=== PATIENT | female | born 1940 | race African-American/Black ===

== ENCOUNTER 2017-09-03 01:16 | Observation (INO) | payer OTHER ==
--- NOTE | 2017-09-03 01:49 | PDOC ---
History of Present Illness - General History Source: Patient <Pernell Bal - Last Filed: 09/03/17 04:13> - General History Source: Patient Exam Limitations: No Limitations - History of Present Illness Initial Comments: 09/03/17 03:12 The patient is a 77 year old female with a significant PMH of HTN, hyperlipidemia, and hypothyroidism who presents to the emergency department with a slight headache s/p suspected syncopal episode approximately 4 hours ago. The patient reports she walked out of her house to retrieve her food delivery and upon returning suddenly felt dizzy and had blurry vision, after which she subsequently fell to the ground. The patient is unsure of LOC as she was by herself at the time of the fall. The patients daughter reports arriving home shortly after and calling EMS. The patient states she has a mild headache at presentation but denies any other complaints. The patient denies any chest pain or shortness of breath currently or before the fall. She denies recent illness. Denies nausea, vomit, diarrhea and constipation. Denies dysuria, frequency, urgency and hematuria. Allergies: NKA Past surgical history: None reported. Social history: No reported cigarette, alcohol, or drug use. PCP: None reported. <Dany Garcia - Last Filed: 09/03/17 04:38> - General Chief Complaint: Syncope/Near Syncope Stated Complaint: SYNCOPE Time Seen by Provider: 09/03/17 01:41 Past History - Suicide/Smoking/Psychosocial Hx Smoking History: Never smoked Have you smoked in the past 12 months: No Information on smoking cessation initiated: No Hx Alcohol Use: No Drug/Substance Use Hx: No <Pernell Bal - Last Filed: 09/03/17 04:13> <Dany Garcia - Last Filed: 09/03/17 04:38> - Past Medical History Allergies/Adverse Reactions: Allergies Allergy/AdvReac Type Severity Reaction Status Date / Time No Known Allergies Allergy Verified 09/03/17 03:18 Review of Systems - Review of Systems Able to Perform ROS?: Yes Comments:: 09/03/17 03:12 CONSTITUTIONAL: Absent: fever, chills, diaphoresis, generalized weakness, malaise, loss of appetite HEENT: (+) Blurry vision (resolved). Absent: rhinorrhea, nasal congestion, throat pain, throat swelling, difficulty swallowing, mouth swelling, ear pain, eye pain. CARDIOVASCULAR: Absent: chest pain, syncope, palpitations, irregular heart rate, lightheadedness , peripheral edema RESPIRATORY: Absent: cough, shortness of breath, dyspnea with exertion, orthopnea, wheezing, stridor, hemoptysis GASTROINTESTINAL: Absent: abdominal pain, abdominal distension, nausea, vomiting, diarrhea, constipation, melena, hematochezia GENITOURINARY: Absent: dysuria, frequency, urgency, hesitancy, hematuria, flank pain, genital pain MUSCULOSKELETAL: Absent: myalgia, arthralgia, joint swelling SKIN: Absent: rash, itching, pallor HEMATOLOGIC/IMMUNOLOGIC: Absent: easy bleeding, easy bruising, lymphadenopathy, frequent infections ENDOCRINE: Absent: unexplained weight gain, unexplained weight loss, heat intolerance, cold intolerance NEUROLOGIC: (+) Slight headache. (+) Dizziness (resolved). Absent:focal weakness or paresthesias, seizure, mental status changes, bladder or bowel incontinence PSYCHIATRIC: Absent: anxiety, depression, suicidal or homicidal ideation, hallucinations. <Dany Garcia - Last Filed: 09/03/17 04:38> *Physical Exam - Vital Signs Last Vital Signs Temp Pulse Resp BP Pulse Ox 98.2 F 88 20 231/69 98 09/03/17 01:28 09/03/17 01:28 09/03/17 01:28 09/03/17 01:28 09/03/17 01:28 <Pernell Bal - Last Filed: 09/03/17 04:13> - Vital Signs Last Vital Signs Temp Pulse Resp BP Pulse Ox 98.2 F 88 20 231/69 98 09/03/17 01:28 09/03/17 01:28 09/03/17 01:28 09/03/17 01:28 09/03/17 01:28 - Physical Exam Comments: 09/03/17 03:12 GENERAL: Well developed, well nourished. Awake and alert. No acute distress. HEENT: (+) Slight hematoma to right frontal aspect of forehead. Slightly tender. No raccoon or jacobsen sign. Normocephalic. PERRLA, EOMI. No conjunctival pallor. Sclera are non-icteric. Moist mucous membranes. Oropharynx is clear. NECK: Supple. Full ROM. No JVD. Carotid pulses 2+ and symmetric, without bruits. No thyromegaly. No lymphadenopathy. CARDIOVASCULAR: Regular rate and rhythm. No murmurs, rubs, or gallops. Distal pulses are 2+ and symmetric. PULMONARY: No evidence of respiratory distress. Lungs clear to auscultation bilaterally. No wheezing, rales or rhonchi. ABDOMINAL: Soft. Non-tender. Non-distended. No rebound or guarding. No organomegaly. Normoactive bowel sounds. MUSCULOSKELETAL Normal range of motion at all joints. No bony deformities or tenderness. No CVA tenderness. EXTREMITIES: No cyanosis. No clubbing. No edema. No calf tenderness. SKIN: Warm and dry. Normal capillary refill. No rashes. No jaundice. NEUROLOGICAL: Alert, awake, appropriate. Cranial nerves 2-12 intact. No deficits to light touch and temperature in face, upper extremities and lower extremities. No motor deficits in the in face, upper extremities and lower extremities. Normoreflexic in the upper and lower extremities. Normal speech. Toes are downgoing bilaterally. Gait is normal without ataxia. PSYCHIATRIC: Cooperative. Good eye contact. Appropriate mood and affect. <Dany Garcia - Last Filed: 09/03/17 04:38> Heart Score/ECG Review #1 09/03/17 03:13 EKG done at 2:04 Vent rate 84 bpm Normal sinus rhythm Possible left atrial enlargement Cannot rule out anterior infarct, age undetermined Abnormal ECG <Dany Garcia - Last Filed: 09/03/17 04:38> ED Treatment Course - LABORATORY CBC & Chemistry Diagram: 09/03/17 02:10 09/03/17 02:10 <Pernell Bal - Last Filed: 09/03/17 04:13> - LABORATORY CBC & Chemistry Diagram: 09/03/17 02:10 09/03/17 02:10 - ADDITIONAL ORDERS Additional order review: Laboratory Results 09/03/17 09/03/17 02:10 02:10 PT with INR 12.40 INR 1.10 Sodium 145 Potassium 3.6 Chloride 111 H Carbon Dioxide 28 Anion Gap 6 L BUN 12 Creatinine 0.7 Creat Clearance w eGFR > 60 Random Glucose 104 Calcium 8.5 Total Bilirubin 0.3 AST 27 ALT 22 Alkaline Phosphatase 113 Creatine Kinase 70 Troponin I 0.02 B-Natriuretic Peptide 1068.83 H Total Protein 7.9 Albumin 3.4 09/03/17 02:10 RBC 3.87 MCV 70.8 L MCHC 30.6 L RDW 19.8 H MPV 8.3 Neutrophils % 67.4 Lymphocytes % 23.6 Monocytes % 6.8 Eosinophils % 2.0 Basophils % 0.2 <Dany Garcia - Last Filed: 09/03/17 04:38> *DC/Admit/Observation/Transfer - Discharge Dispostion Admit: Yes <Pernell Bal - Last Filed: 09/03/17 04:13> - Attestations Scribe Attestion: 09/03/17 03:13 Documentation prepared by Dany Garcia, acting as claim review medical director for Pernell Bal DO. <Dany Garcia - Last Filed: 09/03/17 04:38> Diagnosis at time of Disposition: Syncope - Discharge Dispostion Condition at time of disposition: Stable
[2017-09-03 02:19] LABS: BASO % 0.2 % (0-2.0); HEMATOCRIT 27.4 % (32.4-45.2); HEMOGLOBIN 8.4 GM/dL (10.7-15.3); LYMPH % 23.6 % (8-40); MCH 21.7 pg (25.7-33.7); MCHC 30.6 g/dl (32.0-36.0); MEAN CELL VOLUME 70.8 fl (80-96); MEAN PLT VOLUME 8.3 fl (7.5-11.1); MONO % 6.8 % (3.8-10.2); NEUT % 67.4 % (42.8-82.8); PLATELET COUNT 222 K/MM3 (134-434); RBC 3.87 M/mm3 (3.60-5.2); RDW 19.8 % (11.6-15.6); WHITE BLOOD COUNT 4.3 K/mm3 (4.0-10.0)
[2017-09-03 02:20] LABS: ADD RBC MORPHOLOGY YES
[2017-09-03 02:48] LABS: INR 1.1 (0.82-1.09); PROTHROMBIN TIME (PATIENT) 12.4 SEC (9.7-13.0)
[2017-09-03 02:57] LABS: ALBUMIN 3.4 g/dl (3.4-5.0); ANION GAP 6 (8-16); BILIRUBIN,TOTAL 0.3 mg/dL (0.2-1.0); BLOOD UREA NITROGEN 12 mg/dL (7-18); CALCIUM 8.5 mg/dL (8.5-10.1); CHLORIDE 111 mmol/L (98-107); CO2 28 mmol/L (21-32); CREATININE 0.7 mg/dL (0.55-1.02); GLUCOSE,RANDOM 104 mg/dL (74-106); POTASSIUM 3.6 mmol/L (3.5-5.1); SGOT/AST 27 U/L (15-37); SGPT/ALT 22 U/L (12-78); SODIUM 145 mmol/L (136-145); TOT PROT 7.9 g/dl (6.4-8.2)
[2017-09-03 03:00] LABS: ALK PHOS 113 U/L (45-117); N-TERMINAL BNP 1068.83 pg/ml (5-450)
[2017-09-03 03:37] LABS: URINE APPEARANCE CLEAR; URINE BILIRUBIN NEGATIVE (<2.0 mg/dL); URINE BLOOD NEGATIVE (NEGATIVE); URINE COLOR STRAW; URINE GLUCOSE (UA) NEGATIVE (NEGATIVE); URINE KETONE NEGATIVE (NEGATIVE); URINE LEUK ESTERASE NEGATIVE (NEGATIVE); URINE NITRITE NEGATIVE (NEGATIVE)
[2017-09-03 03:44] LABS: URINE PROTEIN 1+ (NEGATIVE)
[2017-09-03] MEDS ORDERED: METOPROLOL TARTRATE 5 MG/5 ML VIAL IVPUSH ONE (04:39)
[2017-09-03] MEDS ORDERED: METOPROLOL TARTRATE 5 MG/5 ML VIAL ONE (04:41)
--- NOTE | 2017-09-03 04:42 | PN ---
Teaching Attending Note Name of Resident: Lorna Hopper ATTENDING PHYSICIAN STATEMENT I saw and evaluated the patient. I reviewed the resident's note and discussed the case with the resident. I agree with the resident's findings and plan as documented. SUBJECTIVE: 77 yo F with Pmhx. of HTN, HLD, and hypothyriodism, who presents with headache and fall. Pt. went out of her house to get food when she felt dizzy and lightheaded. Also with associated blurry vision. States she fell, but does not know if she lost conscioussness. No chest pain, pressure, or shortness of breath. No N, V, D. She stated she does not take any of her meds, because her PCP moved away and she has not seen one in years. OBJECTIVE: Physical: VS: Vital Signs Period Temp Pulse Resp BP Sys/Baptiste Pulse Ox Last 24 Hr 98.2 F 88 20 231/69 98 GEN: NAD, Resting in bed, AA0X3 HEENT:Bruise above upper R eye, PERRL, Throat without erythema or exudates CARD: RRR S1, S2 RESP: Decreased BS at bases ABD: BSx4, NTD to palpation EXT:- C/C/E CBCD WBC 4.3 K/mm3 (4.0-10.0) 09/03/17 02:10 RBC 3.87 M/mm3 (3.60-5.2) 09/03/17 02:10 Hgb 8.4 GM/dL (10.7-15.3) L 09/03/17 02:10 Hct 27.4 % (32.4-45.2) L 09/03/17 02:10 MCV 70.8 fl (80-96) L 09/03/17 02:10 MCHC 30.6 g/dl (32.0-36.0) L 09/03/17 02:10 RDW 19.8 % (11.6-15.6) H 09/03/17 02:10 Plt Count 222 K/MM3 (134-434) 09/03/17 02:10 MPV 8.3 fl (7.5-11.1) 09/03/17 02:10 CMP Sodium 145 mmol/L (136-145) 09/03/17 02:10 Potassium 3.6 mmol/L (3.5-5.1) 09/03/17 02:10 Chloride 111 mmol/L (98-107) H 09/03/17 02:10 Carbon Dioxide 28 mmol/L (21-32) 09/03/17 02:10 Anion Gap 6 (8-16) L 09/03/17 02:10 BUN 12 mg/dL (7-18) 09/03/17 02:10 Creatinine 0.7 mg/dL (0.55-1.02) 09/03/17 02:10 Creat Clearance w eGFR > 60 (>60) 09/03/17 02:10 Random Glucose 104 mg/dL (74-106) 09/03/17 02:10 Calcium 8.5 mg/dL (8.5-10.1) 09/03/17 02:10 Total Bilirubin 0.3 mg/dL (0.2-1.0) 09/03/17 02:10 AST 27 U/L (15-37) 09/03/17 02:10 ALT 22 U/L (12-78) 09/03/17 02:10 Alkaline Phosphatase 113 U/L (45-117) 09/03/17 02:10 Total Protein 7.9 g/dl (6.4-8.2) 09/03/17 02:10 Albumin 3.4 g/dl (3.4-5.0) 09/03/17 02:10 CARDIAC ENZYMES Creatine Kinase 70 IU/L (26-192) 09/03/17 02:10 Troponin I 0.02 ng/ml (0.00-0.05) 09/03/17 02:10 CT HEAD- No Acute Process C-SPINE: NO fracture 09/03/17 03:13 EKG Vent rate 84 bpm Normal sinus rhythm Possible left atrial enlargement Cannot rule out anterior infarct, age undetermined Abnormal ECG ASSESSMENT AND PLAN: 77 F with htn, hld who presents s/p Fall 1.) Fall/Syncope - CT HEAD as above - Trend Trop/Ekg - ECHO./Carotids - Orthostatic VS - TSH 2.) Microcytic Anemia - Stool Occult - FE Studies - GI for [place] ou[facility]. before d/c 3.) HTN Urgency - Trend Trop/EKG - ECHO - Amlodipine/ BB 4.) HLD - Check Lipid Panel - Statin 5.) Dvt Ppx - Scds Place in Obs-Tele
[2017-09-03 04:46] LABS: ANISOCYTOSIS 2+
[2017-09-03] MEDS ORDERED: amLODIPine BESYLATE 5 MG TABLET (FP) PO ONE (05:14)
[2017-09-03] MEDS ORDERED: amLODIPine BESYLATE 5 MG TABLET (FP) ONE ×2 (05:21→16:12)
--- NOTE | 2017-09-03 05:52 | HP ---
CHIEF COMPLAINT: syncope PCP: None HISTORY OF PRESENT ILLNESS: Patient is a non-compliant, 77 yo F with pmhx of HTN , HLD, hypothyroidism, presented to the ED after "passing out". She said she picked up her food from the delivery ryan outside and felt dizzy as she walked back inside the house. She does not remember how long she was out for. She says this happened to her in the past a few times. She also mentions always getting dizzy when getting up from a seated position very quickly. 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 She also has not been on any meds in a long time. She denies SOB, chest pain, headache, dysuria, diarrhea, nausea, vomiting, fevbers. ER course was notable for: (1) BP 231/69 (2) Hgb 8.4 Recent Travel: n/a PAST MEDICAL HISTORY: per HPI PAST SURGICAL HISTORY: n/a Social History: Smoking: denies Alcohol: denies Drugs: denies Family History: Allergies No Known Allergies Allergy (Verified 09/03/17 03:18) HOME MEDICATIONS: REVIEW OF SYSTEMS CONSTITUTIONAL: Absent: fever, chills, diaphoresis, generalized weakness, malaise, loss of appetite, weight change HEENT: Absent: rhinorrhea, nasal congestion, throat pain, throat swelling, difficulty swallowing, mouth swelling, ear pain, eye pain, visual changes CARDIOVASCULAR: Absent: chest pain, syncope, palpitations, irregular heart rate, lightheadedness , peripheral edema RESPIRATORY: Absent: cough, shortness of breath, dyspnea with exertion, orthopnea, wheezing, stridor, hemoptysis GASTROINTESTINAL: Absent: abdominal pain, abdominal distension, nausea, vomiting, diarrhea, constipation, melena, hematochezia GENITOURINARY: Absent: dysuria, frequency, urgency, hesitancy, hematuria, flank pain, genital pain HEMATOLOGIC/IMMUNOLOGIC: Absent: easy bleeding, easy bruising, lymphadenopathy, frequent infections ENDOCRINE: Absent: unexplained weight gain, unexplained weight loss, heat intolerance, cold intolerance NEUROLOGIC: dizziness Absent: headache, focal weakness or paresthesias, unsteady gait, seizure, mental status changes, bladder or bowel incontinence PHYSICAL EXAMINATION Vital Signs - 24 hr 09/03/17 09/03/17 01:28 04:40 Temperature 98.2 F Pulse Rate 88 Respiratory 20 Rate Blood Pressure 231/69 186/88 O2 Sat by Pulse 98 Oximetry (%) GENERAL: Awake, alert, and fully oriented, in no acute distress. HEAD: Normal with no signs of trauma. Right forehead abrasion. EYES: extraocular movements intact, sclera anicteric, conjunctiva clear. No lid lag. EARS, NOSE, THROAT:oropharynx clear without exudates. Moist mucous membranes. NECK: supple without lymphadenopathy, JVD, or masses. LUNGS: Breath sounds equal, clear to auscultation bilaterally. No wheezes, and no crackles. No accessory muscle use. HEART: Regular rate and rhythm, normal S1 and S2 without murmur, rub or gallop. ABDOMEN: Soft, nontender, not distended, normoactive bowel sounds, no guarding, no rebound, no masses. UPPER EXTREMITIES: 2+ pulses, warm, well-perfused. No cyanosis. No clubbing. No peripheral edema. LOWER EXTREMITIES: 2+ pulses, warm, well-perfused. No calf tenderness. No peripheral edema. NEUROLOGICAL: Cranial nerves II-XII intact. Normal speech. Normal gait. PSYCHIATRIC: Cooperative. Appropriate mood and affect. Laboratory Results - last 24 hr 09/03/17 09/03/17 09/03/17 02:10 02:10 02:10 WBC 4.3 RBC 3.87 Hgb 8.4 L Hct 27.4 L MCV 70.8 L MCH 21.7 L MCHC 30.6 L RDW 19.8 H Plt Count 222 MPV 8.3 Neutrophils % 67.4 Lymphocytes % 23.6 Monocytes % 6.8 Eosinophils % 2.0 Basophils % 0.2 Hypochromia 2+ Anisocytosis 2+ Microcytosis 2+ PT with INR 12.40 INR 1.10 Sodium 145 Potassium 3.6 Chloride 111 H Carbon Dioxide 28 Anion Gap 6 L BUN 12 Creatinine 0.7 Creat Clearance w eGFR > 60 Random Glucose 104 Calcium 8.5 Total Bilirubin 0.3 AST 27 ALT 22 Alkaline Phosphatase 113 Creatine Kinase 70 Troponin I 0.02 B-Natriuretic Peptide 1068.83 H Total Protein 7.9 Albumin 3.4 Urine Color Urine Appearance Urine pH Ur Specific [place] Urine Protein Urine Glucose (UA) Urine Ketones Urine Blood Urine Nitrite Urine Bilirubin Urine Urobilinogen Ur Leukocyte Esterase Urine WBC (Auto) Urine RBC (Auto) 04/25/18 03:30 WBC RBC Hgb Hct MCV MCH MCHC RDW Plt Count MPV Neutrophils % Lymphocytes % Monocytes % Eosinophils % Basophils % Hypochromia Anisocytosis Microcytosis PT with INR INR Sodium Potassium Chloride Carbon Dioxide Anion Gap BUN Creatinine Creat Clearance w eGFR Random Glucose Calcium Total Bilirubin AST ALT Alkaline Phosphatase Creatine Kinase Troponin I B-Natriuretic Peptide Total Protein Albumin Urine Color Straw Urine Appearance Clear Urine pH 7.0 Ur Specific [place] 1.012 Urine Protein 1+ H Urine Glucose (UA) Negative Urine Ketones Negative Urine Blood Negative Urine Nitrite Negative Urine Bilirubin Negative Urine Urobilinogen 2.0 H Ur Leukocyte Esterase Negative Urine WBC (Auto) 2 Urine RBC (Auto) <1 CT HEAD- No Acute Process C-SPINE: NO fracture EKG Vent rate 84 bpm Normal sinus rhythm Possible left atrial enlargement Cannot rule out anterior infarct, age undetermined Abnormal ECG ASSESSMENT/PLAN: 77 yo F with pmhx of HTN, HLD, hypothyroidism, presented because of syncopal episode. #Syncope -Head CT unremarkable for acute pathology -Trend Trop -Cardiac monitoring -Orthostatics -TSH -ECHO -Carotids #HTN Urgency -Echo in AM -Amlodipine 10mg -Patient not on any meds at home -monitor #Microcytic Anemia -iron studies -colonoscopy outpatient -stool occult #DVT Ppx -Scds Obs-tele Visit type - Emergency Visit Emergency Visit: Yes Care time: The patient presented to the Emergency Department on the above date and was hospitalized for further evaluation of their emergent condition. - New Patient This patient is new to me today: Yes Date on this admission: 09/03/17 - Critical Care Critical Care patient: No Hospitalist Screening - Colonoscopy Questionnaire Colonoscopy Questionnaire: Colonoscopy Questionnaire - Patient: 50 - 75 years old and never had a screening colonoscopy: Unknown History of colon or rectal polyps, or CA: Unknown History of IBD, Crohn's disease or UC: Unknown History of abdominal radiation therapy as a child: Unknown - Relative: 1 with colon or rectal CA, or polyps at age 60 or younger: Unknown Colon or rectal CA diagnosed at age 45 or younger: Unknown Multiple relatives with colon or rectal CA: Unknown - Outcome: Screening Result: Negative Screen
--- NOTE | 2017-09-03 07:52 | PN ---
Physical Exam: SUBJECTIVE: Patient seen and examined - BP 230s systolic on presentation; received metoprolol 5mg IV, norvasc 5mg PO; decreased to 180s systolic; pt with hx of complete medical noncompliance; complaining of pain in R supraorbital margin of forehead; denies f/c/n/v/d, MENDOZA, vision changes, lightheadness, peripheral numbness/tingling, CP, ab pain, back pain; endorses worsening dyspnea on exertion, orthopnea OBJECTIVE: Vital Signs Intake & Output 08/31/17 09/01/17 09/02/17 09/03/17 23:59 23:59 23:59 23:59 Weight 90.718 kg Period Temp Pulse Resp BP Sys/Baptiste Pulse Ox Last 24 Hr 98.2 F 87-88 20-20 186-231/69-98 96-98 GENERAL: Elderly woman, NAD HEAD: Right supraorbital ecchymosis noted; no step-offs, crepitus or obvious deformities noted EYES: PERRL, extraocular movements intact, sclera anicteric, conjunctiva clear. No ptosis. ENT: Poor dentition. Ears normal, nares patent, oropharynx clear without exudates, moist mucous membranes. NECK: Trachea midline, full range of motion, supple. No bruits LUNGS: Breath sounds equal, clear to auscultation bilaterally, no wheezes, no crackles, no accessory muscle use. HEART: Regular rate and rhythm, S1, S2 without murmur, rub or gallop. ABDOMEN: Soft, nontender, nondistended, normoactive bowel sounds, no guarding, no rebound, no hepatosplenomegaly, no masses. EXTREMITIES: 2+ pulses, warm, well-perfused, trace pedal edema appreciated BL NEUROLOGICAL: Cranial nerves II through XII grossly intact. Normal speech, gait not observed. PSYCH: Normal mood, normal affect. pleasant, interactive SKIN: Warm, dry, normal turgor, no rashes or lesions noted Laboratory Results - last 24 hr CBC, BMP 09/03/17 02:10 09/03/17 02:10 09/03/17 09/03/17 09/03/17 02:10 02:10 02:10 WBC 4.3 RBC 3.87 Hgb 8.4 L Hct 27.4 L MCV 70.8 L MCH 21.7 L MCHC 30.6 L RDW 19.8 H Plt Count 222 MPV 8.3 Neutrophils % 67.4 Lymphocytes % 23.6 Monocytes % 6.8 Eosinophils % 2.0 Basophils % 0.2 Hypochromia 2+ Anisocytosis 2+ Microcytosis 2+ PT with INR 12.40 INR 1.10 Sodium 145 Potassium 3.6 Chloride 111 H Carbon Dioxide 28 Anion Gap 6 L BUN 12 Creatinine 0.7 Creat Clearance w eGFR > 60 Random Glucose 104 Calcium 8.5 Total Bilirubin 0.3 AST 27 ALT 22 Alkaline Phosphatase 113 Creatine Kinase 70 Troponin I 0.02 B-Natriuretic Peptide 1068.83 H Total Protein 7.9 Albumin 3.4 Urine Color Urine Appearance Urine pH Ur Specific [place] Urine Protein Urine Glucose (UA) Urine Ketones Urine Blood Urine Nitrite Urine Bilirubin Urine Urobilinogen Ur Leukocyte Esterase Urine WBC (Auto) Urine RBC (Auto) 09/03/17 03:30 WBC RBC Hgb Hct MCV MCH MCHC RDW Plt Count MPV Neutrophils % Lymphocytes % Monocytes % Eosinophils % Basophils % Hypochromia Anisocytosis Microcytosis PT with INR INR Sodium Potassium Chloride Carbon Dioxide Anion Gap BUN Creatinine Creat Clearance w eGFR Random Glucose Calcium Total Bilirubin AST ALT Alkaline Phosphatase Creatine Kinase Troponin I B-Natriuretic Peptide Total Protein Albumin Urine Color Straw Urine Appearance Clear Urine pH 7.0 Ur Specific [place] 1.012 Urine Protein 1+ H Urine Glucose (UA) Negative Urine Ketones Negative Urine Blood Negative Urine Nitrite Negative Urine Bilirubin Negative Urine Urobilinogen 2.0 H Ur Leukocyte Esterase Negative Urine WBC (Auto) 2 Urine RBC (Auto) <1 CT HEAD 09/03-Impression [id number] volume loss and ventricular dilatation. The lateral and third ventricles including the temporal horns are relatively more dilated than the fourth. Although this may be due to central atrophy, differential diagnosis includes aqueduct of Sylvius stenosis. Correlate clinically for further evaluation. No mass lesion, gross acute infarct or intracranial hemorrhage are identified. C-SPINE 09/03: The alignment is satisfactory. No gross fracture or subluxation is seen. CXR 09/03 - Congestive changes Carotid doppler 09/03 - Impression: Mild intimal thickening and minimal plaque buildup at the right common carotid bifurcation and bulb as well as mild intimal thickening and a small plaques at the left common carotid bifurcation/ bulb without evidence of hemodynamically significant stenosis, bilaterally. Echo 09/03 - LV size and function are normal, RV pressures 50-60mmhg, mild TR EKG Vent rate 84 bpm Normal sinus rhythm Possible left atrial enlargement Cannot rule out anterior infarct, age undetermined Abnormal ECG ASSESSMENT/PLAN: 77 yo F with pmhx of HTN, HLD, hypothyroidism, who presents s/p mechanical fall secondary to syncopal episode. Pt with no evidence of fx or severe trauma. Will undergo standard syncope w/u with d/c in 24-48 hours. #Syncopal episode - pt endorses prior syncopal episodes in past; follows w/ Dr. Banuelos for cardiology; head CT unremarkable; echo results as noted above - f/u remaining cardiac records; prior hx of ?PPM placement plan -trops neg x2 -Cardiac monitoring -f/u Orthostatics -Carotid doppler results noted above - cardiology consulted, recs appreciated - will likely require outpt stress test - PT eval - consider holter monitor - ASA, crestor #HTN Urgency - pt BP improved from 230s systolic to 150s systolic this PM -Amlodipine 5mg qdaily - No HTN meds at home -q4h vitals - will require counseling on BP monitoring at home, better medical compliance #Microcytic Anemia - Hgb 8.4; microcytic -f/u iron studies -referral for colonoscopy outpatient -stool occult - TSH, vit b12 normal; folate high #HLD -f/u lipid panel - c/w crestor #DVT Ppx Scds FEN PO hydration daily lytes sodium controlled diet Tele obs Plan discussed with Dr. Mercedes Bazzi, PGY1 Visit type - Emergency Visit Emergency Visit: Yes ED Registration Date: 09/03/17 Care time: The patient presented to the Emergency Department on the above date and was hospitalized for further evaluation of their emergent condition. - New Patient This patient is new to me today: Yes Date on this admission: 09/03/17 - Critical Care Critical Care patient: No - Discharge Referral Referred to [facility] Med P.C[facility] No
[2017-09-03 08:06] LABS: HEMATOCRIT 28.2 % (32.4-45.2); HEMOGLOBIN 8.4 GM/dL (10.7-15.3); MCH 21.4 pg (25.7-33.7); MCHC 29.9 g/dl (32.0-36.0); MEAN CELL VOLUME 71.7 fl (80-96); MEAN PLT VOLUME 8.6 fl (7.5-11.1); PLATELET COUNT 234 K/MM3 (134-434); RBC 3.94 M/mm3 (3.60-5.2); RDW 19.5 % (11.6-15.6); WHITE BLOOD COUNT 6.7 K/mm3 (4.0-10.0)
[2017-09-03 09:06] LABS: ALBUMIN 3.3 g/dl (3.4-5.0); ANION GAP 8 (8-16); BILIRUBIN,TOTAL 0.4 mg/dL (0.2-1.0); BLOOD UREA NITROGEN 10 mg/dL (7-18); CALCIUM 8.6 mg/dL (8.5-10.1); CHLORIDE 109 mmol/L (98-107); CO2 25 mmol/L (21-32); CREATININE 0.7 mg/dL (0.55-1.02); GLUCOSE,RANDOM 133 mg/dL (74-106); PHOSPHOROUS 3.2 mg/dL (2.5-4.9); POTASSIUM 3.6 mmol/L (3.5-5.1); SGOT/AST 25 U/L (15-37); SGPT/ALT 20 U/L (12-78); SODIUM 142 mmol/L (136-145); TOT PROT 7.8 g/dl (6.4-8.2)
[2017-09-03 09:07] LABS: ALK PHOS 114 U/L (45-117)
[2017-09-03] MEDS ORDERED: METOPROLOL TARTRATE 50 MG TABLET (FP) PO SCH (10:00)
[2017-09-03] MEDS ORDERED: METOPROLOL TARTRATE 25 MG TABLET (FP) PO SCH (10:01)
[2017-09-03] MEDS ORDERED: ROSUVASTATIN CA 40 MG TABLET PO ONE (11:00)
[2017-09-03] MEDS: ASPIRIN COATED 81 MG TABLET.EC PO SCH (11:11)
[2017-09-03] MEDS ORDERED: METOPROLOL TARTRATE 25 MG TABLET (FP) ONE (11:44)
--- NOTE | 2017-09-03 12:02 | EKG ---
Test Reason : Blood Pressure : / mmHG Vent. Rate : 084 BPM Atrial Rate : 084 BPM P-R Int : 180 ms QRS Dur : 094 ms QT Int : 362 ms P-R-T Axes : 050 023 066 degrees QTc Int : 427 ms NORMAL SINUS RHYTHM POSSIBLE LEFT ATRIAL ENLARGEMENT CANNOT RULE OUT ANTERIOR INFARCT , AGE UNDETERMINED ABNORMAL ECG WHEN COMPARED WITH ECG OF 17-DEC-2010 10:49, NO SIGNIFICANT CHANGE WAS FOUND Confirmed by YUNIEL LOZADA MD ([id number]) on 09/03/2017 12:02:14 PM Referred By: Confirmed By:YUNIEL LOZADA MD
--- NOTE | 2017-09-03 13:44 | PN ---
Teaching Attending Note Name of Resident: Nii Bazzi ATTENDING PHYSICIAN STATEMENT I saw and evaluated the patient. I reviewed the resident's note and discussed the case with the resident. I agree with the resident's findings and plan as documented with exceptions below. SUBJECTIVE: patient seen and examined. Pain at the site of the fall, right forehead. no other complaints. OBJECTIVE: Vital Signs Period Temp Pulse Resp BP Sys/Baptiste Pulse Ox Last 24 Hr 98.2 F-98.3 F 77-88 18-20 182-231/69-98 96-98 Intake & Output 08/31/17 09/01/17 09/02/17 09/03/17 23:59 23:59 23:59 23:59 Weight 200 lb General: sitting in chair, no acute distress HEENT: right foreheard swelling with ecchymosis, mild tenderness Chest: CTAB, no rales or wheezing abdomen: soft, obese, NT extremities: no edema Home Medication List Medication Instructions Recorded Confirmed Type NK [No Known Home Medication] 09/03/17 09/03/17 History Active Medications Generic Name Dose Route Start Last Admin Trade Name Freq PRN Reason Stop Dose Admin Amlodipine Besylate 5 mg 09/03/17 13:45 Norvasc - PO DAILY OSWALD Aspirin 81 mg 09/03/17 10:15 Ecotrin - PO DAILY OSWALD Rosuvastatin Calcium 40 mg 09/04/17 22:00 Crestor - PO HS OSWALD Laboratory Results - last 24 hr 09/03/17 09/03/17 09/03/17 02:10 02:10 02:10 WBC 4.3 RBC 3.87 Hgb 8.4 L Hct 27.4 L MCV 70.8 L MCH 21.7 L MCHC 30.6 L RDW 19.8 H Plt Count 222 MPV 8.3 Neutrophils % 67.4 Lymphocytes % 23.6 Monocytes % 6.8 Eosinophils % 2.0 Basophils % 0.2 Hypochromia 2+ Anisocytosis 2+ Microcytosis 2+ PT with INR 12.40 INR 1.10 Sodium 145 Potassium 3.6 Chloride 111 H Carbon Dioxide 28 Anion Gap 6 L BUN 12 Creatinine 0.7 Creat Clearance w eGFR > 60 Random Glucose 104 Hemoglobin A1c % Calcium 8.5 Phosphorus Magnesium Ferritin Total Bilirubin 0.3 AST 27 ALT 22 Alkaline Phosphatase 113 Creatine Kinase 70 Troponin I 0.02 B-Natriuretic Peptide 1068.83 H Total Protein 7.9 Albumin 3.4 Vitamin B12 Serum Folate TSH Urine Color Urine Appearance Urine pH Ur Specific [place] Urine Protein Urine Glucose (UA) Urine Ketones Urine Blood Urine Nitrite Urine Bilirubin Urine Urobilinogen Ur Leukocyte Esterase Urine WBC (Auto) Urine RBC (Auto) 09/03/17 09/03/17 09/03/17 03:30 07:42 07:42 WBC 6.7 D RBC 3.94 Hgb 8.4 L Hct 28.2 L MCV 71.7 L MCH 21.4 L MCHC 29.9 L RDW 19.5 H Plt Count 234 MPV 8.6 Neutrophils % Lymphocytes % Monocytes % Eosinophils % Basophils % Hypochromia Anisocytosis Microcytosis PT with INR INR Sodium 142 Potassium 3.6 Chloride 109 H Carbon Dioxide 25 Anion Gap 8 BUN 10 Creatinine 0.7 Creat Clearance w eGFR > 60 Random Glucose 133 H Hemoglobin A1c % Calcium 8.6 Phosphorus 3.2 Magnesium 2.0 Ferritin Total Bilirubin 0.4 D AST 25 ALT 20 Alkaline Phosphatase 114 Creatine Kinase Troponin I B-Natriuretic Peptide Total Protein 7.8 Albumin 3.3 L Vitamin B12 Serum Folate TSH Urine Color Straw Urine Appearance Clear Urine pH 7.0 Ur Specific [place] 1.012 Urine Protein 1+ H Urine Glucose (UA) Negative Urine Ketones Negative Urine Blood Negative Urine Nitrite Negative Urine Bilirubin Negative Urine Urobilinogen 2.0 H Ur Leukocyte Esterase Negative Urine WBC (Auto) 2 Urine RBC (Auto) <1 09/03/17 09/03/17 09/03/17 07:42 07:42 07:42 WBC RBC Hgb Hct MCV MCH MCHC RDW Plt Count MPV Neutrophils % Lymphocytes % Monocytes % Eosinophils % Basophils % Hypochromia Anisocytosis Microcytosis PT with INR INR Sodium Potassium Chloride Carbon Dioxide Anion Gap BUN Creatinine Creat Clearance w eGFR Random Glucose Hemoglobin A1c % 5.5 Calcium Phosphorus Magnesium Ferritin 18.954 Total Bilirubin AST ALT Alkaline Phosphatase Creatine Kinase Troponin I 0.03 B-Natriuretic Peptide Total Protein Albumin Vitamin B12 556 Serum Folate 19 H TSH 1.23 Urine Color Urine Appearance Urine pH Ur Specific [place] Urine Protein Urine Glucose (UA) Urine Ketones Urine Blood Urine Nitrite Urine Bilirubin Urine Urobilinogen Ur Leukocyte Esterase Urine WBC (Auto) Urine RBC (Auto) 2D echo results reviewed. Carotid doppler results reviewed ASSESSMENT AND PLAN: 77 yof prior h/o HTN, ?Told to have PPM, not recent follow up admitted with syncope -Syncope, vague h/o of being told of ?PPM, h/o exertional dyspnea -Uncontrolled HTN, suspect from non compliance -Mechanical fall with forehead contusion Plan: 2D echo/carotids noted. ?h/o being told to need ?PPM, also exertion dyspnea. Cardiology consult. Anticipate may benefit from outpatient holter and stress test outpatient once BP better controlled. Start Amlodipine. Follow up lipid panel. Statin till further info available. PT eval. Dispo pending cardiology input and PT eval. Plan discussed with patient in detail, all questions answered.
[2017-09-03] MEDS ORDERED: amLODIPine BESYLATE 5 MG TABLET (FP) PO SCH (13:45)
--- NOTE | 2017-09-03 14:57 | MSN ---
Progress Note (short form) - Note Progress Note: SUBJECTIVE: Patient seen and examined this morning. She remains hypertensive ( 186/88) after receiving lopressor 5 mg IV and norvasc 5 mg PO in the ED. She complains of dull pain in her right forehead that radiates to the right occiput and lateral neck due to the trauma she sustained when she fell. Active range of motion of her neck is limited. She denies changes in vision, dizziness, lightheadedness, headache, numbness or tingling in the right arm. She admits to SOB with exertion, orthopnea, and chronic b/l knee pain. She denies chest pain, abdominal pain, melena, or hematochezia. OBJECTIVE: Vital Signs Period Temp Pulse Resp BP Sys/Baptiste Pulse Ox Last 24 Hr 98.2 F-98.3 F 77-88 18-20 182-231/69-98 96-98 PHYSICAL EXAM: GENERAL: Elderly woman, wearing a headband sitting with knees danging over edge of bed, awake and alert in no acute distress. HEAD: Right supraorbital ecchymosis extending into hair line, temporal region and occipital region tender to palpation EYES: Conjunctival pallor, no conjunctival injection, darkening of sclera, extra ocular muscles intact MOUTH: Poor dentition, uvula midline, no lesions or plaques NECK: Limited active range of motion (limited left rotation), No thyromegaly or lymphadenopathy, no carotid bruits, trachea midline CARDIOVASCULAR: No JVD, regular at 80 bpm with S1/S2, no murmurs, rubs, or gallops LUNGS: Clear to auscultation b/l; breath sounds equal, no wheezes or crackles EXTREMITIES: 2+ pulses equal UE/LE; Left 1st toe partial amputation; trace pedal edema NEURO: CN II-XII grossly intact, normal speech, unsteady gait, no pronator drift Laboratory Results - last 24 hr 09/03/17 09/03/17 09/03/17 02:10 02:10 02:10 WBC 4.3 RBC 3.87 Hgb 8.4 L Hct 27.4 L MCV 70.8 L MCH 21.7 L MCHC 30.6 L RDW 19.8 H Plt Count 222 MPV 8.3 Neutrophils % 67.4 Lymphocytes % 23.6 Monocytes % 6.8 Eosinophils % 2.0 Basophils % 0.2 Hypochromia 2+ Anisocytosis 2+ Microcytosis 2+ PT with INR 12.40 INR 1.10 Sodium 145 Potassium 3.6 Chloride 111 H Carbon Dioxide 28 Anion Gap 6 L BUN 12 Creatinine 0.7 Creat Clearance w eGFR > 60 Random Glucose 104 Hemoglobin A1c % Calcium 8.5 Phosphorus Magnesium Ferritin Total Bilirubin 0.3 AST 27 ALT 22 Alkaline Phosphatase 113 Creatine Kinase 70 Troponin I 0.02 B-Natriuretic Peptide 1068.83 H Total Protein 7.9 Albumin 3.4 Vitamin B12 Serum Folate TSH Urine Color Urine Appearance Urine pH Ur Specific [place] Urine Protein Urine Glucose (UA) Urine Ketones Urine Blood Urine Nitrite Urine Bilirubin Urine Urobilinogen Ur Leukocyte Esterase Urine WBC (Auto) Urine RBC (Auto) 09/03/17 09/03/17 09/03/17 03:30 07:42 07:42 WBC 6.7 D RBC 3.94 Hgb 8.4 L Hct 28.2 L MCV 71.7 L MCH 21.4 L MCHC 29.9 L RDW 19.5 H Plt Count 234 MPV 8.6 Neutrophils % Lymphocytes % Monocytes % Eosinophils % Basophils % Hypochromia Anisocytosis Microcytosis PT with INR INR Sodium 142 Potassium 3.6 Chloride 109 H Carbon Dioxide 25 Anion Gap 8 BUN 10 Creatinine 0.7 Creat Clearance w eGFR > 60 Random Glucose 133 H Hemoglobin A1c % Calcium 8.6 Phosphorus 3.2 Magnesium 2.0 Ferritin Total Bilirubin 0.4 D AST 25 ALT 20 Alkaline Phosphatase 114 Creatine Kinase Troponin I B-Natriuretic Peptide Total Protein 7.8 Albumin 3.3 L Vitamin B12 Serum Folate TSH Urine Color Straw Urine Appearance Clear Urine pH 7.0 Ur Specific [place] 1.012 Urine Protein 1+ H Urine Glucose (UA) Negative Urine Ketones Negative Urine Blood Negative Urine Nitrite Negative Urine Bilirubin Negative Urine Urobilinogen 2.0 H Ur Leukocyte Esterase Negative Urine WBC (Auto) 2 Urine RBC (Auto) <1 09/03/17 09/03/17 09/03/17 07:42 07:42 07:42 WBC RBC Hgb Hct MCV MCH MCHC RDW Plt Count MPV Neutrophils % Lymphocytes % Monocytes % Eosinophils % Basophils % Hypochromia Anisocytosis Microcytosis PT with INR INR Sodium Potassium Chloride Carbon Dioxide Anion Gap BUN Creatinine Creat Clearance w eGFR Random Glucose Hemoglobin A1c % 5.5 Calcium Phosphorus Magnesium Ferritin 18.954 Total Bilirubin AST ALT Alkaline Phosphatase Creatine Kinase Troponin I 0.03 B-Natriuretic Peptide Total Protein Albumin Vitamin B12 556 Serum Folate 19 H TSH 1.23 Urine Color Urine Appearance Urine pH Ur Specific [place] Urine Protein Urine Glucose (UA) Urine Ketones Urine Blood Urine Nitrite Urine Bilirubin Urine Urobilinogen Ur Leukocyte Esterase Urine WBC (Auto) Urine RBC (Auto) IMAGING: CT-Head: No acute pathology C-Spine X-Ray: No fracture EKG: Sinus rhythm with left atrial enlargement CXR: Large heart with sclerotic aortic knob and vascular congestion ASSESSMENT/PLAN: 77 yr old woman with a history of medication non-compliance, HTN, hyperlipidemia , hyperthyroidism presented to ED after a syncopal episode following mild exertion in which she fell and hit her head and was found to be in hypertensive urgency. #Syncope-Patient has seen a firestop/containment worker in the past but does not remember why. Will obtain old records from cardiology. She has not taken any of her prescribed medications since January 2015. -In-patient echo, telemetry monitoring, troponins x 2 negative, EKG -Carotid doppler -Orthostatic blood pressures -Lipid panel; HbA1c -ASA 81 mg QD -Cardiology consultation -Follow-up with cardiology as out-patient -PT evaluation; at home patient walks with a walker #Hypertensive urgency-On presentation patient blood pressure was 231/69. She has not taken any blood pressure medications since January 2015 at which time she was prescribed Procardia XL 60 mg. Patient is asymptomatic. -In the ER she received Norvasc 5 mg PO and lopressor 5 mg IV with mild decrease in bp (186/88) -Today she received lopressor 25 mg PO with better bp control (140/94); due to uncertain cardiac history will continue to manage bp with Norvasc 5 mg QD #Microcytic anemia-Hb 8.4 with baseline hemoglobin unknown. Patient has not had screening colonoscopy. -Order FOBT, iron studies #[id number]-[id number]-Fmg has a remote history of hyperthyroidism treated with methimazole 2.5 mg qd in 2014. Now TSH within normal limits. #Hyperlipidemia-History of hyperlipidemia -Order lipid panel -Crestor 40 mg QD #FEN -Normal diet #Dispo-will need close outpatient follow-up with PCP and firestop/containment worker
--- NOTE | 2017-09-03 16:43 | CON.CARD ---
Consult Consult Specialty:: Cardiology Referred by:: Hospitalist Medicine Reason for Consultation:: Syncope - History of Present Illness Chief Complaint: Syncope History of Present Illness: 77 yo F with Pmhx. of HTN, HLD, and hypothyroidism, who presents with headache and fall. Pt. went out of her house to get food when she felt prodrome of dizziness, lightheadedness, blurry vision, flushed feeling. States she fell, but does not know if she lost consciousness. She denies chest pain, pressure, or shortness of breath, palpitations, orthopnea, PND or LE edema. She stated she does not take any of her meds, because her PCP moved away and she has not seen one in years. - History Source History Provided By: Patient Limitations to Obtaining History: No Limitations - Alcohol/Substance Use Hx Alcohol Use: No - Smoking History Smoking history: Never smoked Have you smoked in the past 12 months: No Home Medications - Allergies Allergies/Adverse Reactions: Allergies Allergy/AdvReac Type Severity Reaction Status Date / Time No Known Allergies Allergy Verified 09/03/17 03:18 - Home Medications Home Medications: Ambulatory Orders NK [No Known Home Medication] 09/03/17 Vital Signs: Vital Signs Temperature 98.3 F 09/03/17 10:00 Pulse Rate 77 09/03/17 10:00 Respiratory Rate 18 09/03/17 10:00 Blood Pressure 182/71 09/03/17 10:00 O2 Sat by Pulse Oximetry (%) 98 09/03/17 02:35 Constitutional: Yes: No Distress, Calm Neck: Yes: Supple Respiratory: Yes: Regular, CTA Bilaterally Gastrointestinal: Yes: Normal Bowel Sounds, Soft Cardiovascular: Yes: Regular Rate and Rhythm JVD: No Carotid Bruit: No Heart Sounds: Yes: S1, S2 Murmur: Yes: Systolic Murmur, Grade 1 Edema: No - Other Data Labs, Other Data: CBC, BMP 09/03/17 07:42 09/03/17 07:42 INR, PTT INR 1.10 (0.82-1.09) 09/03/17 02:10 Troponin, BNP 09/03/17 09/03/17 02:10 07:42 Troponin I 0.02 0.03 B-Natriuretic Peptide 1068.83 H Troponin, BNP 09/03/17 09/03/17 02:10 07:42 Troponin I 0.02 0.03 B-Natriuretic Peptide 1068.83 H NSR PRWP Ejection Fraction %: LVEF > or = 40 % Imaging - Results Chest X-ray: Report Reviewed (Congestive changes) Problem List - Problems (1) Hypertensive cardiomyopathy Code(s): I11.9 - HYPERTENSIVE HEART DISEASE WITHOUT HEART FAILURE; I43 - CARDIOMYOPATHY IN DISEASES CLASSIFIED ELSEWHERE Qualifiers: Heart failure presence: without heart failure Qualified Code(s): I11.9 - Hypertensive heart disease without heart failure; I43 - Cardiomyopathy in diseases classified elsewhere; I43 - Cardiomyopathy in diseases classified elsewhere; I43 - Cardiomyopathy in diseases classified elsewhere; I43 - Cardiomyopathy in diseases classified elsewhere (2) Syncope Code(s): R55 - SYNCOPE AND COLLAPSE Qualifiers: Syncope type: vasovagal syncope Qualified Code(s): R55 - Syncope and collapse (3) Hyperlipidemia Code(s): E78.5 - HYPERLIPIDEMIA, UNSPECIFIED (4) Anemia Code(s): D64.9 - ANEMIA, UNSPECIFIED Qualifiers: Anemia type: unspecified type Qualified Code(s): D64.9 - Anemia, unspecified Assessment/Plan 09/03/2017 Echo: Normal LV size and fxn, no , mild MR, TR RVSP 50-60 mmHg 1. Post mechanical fall, possible syncope 2. Hypertensive cardiomyopathy, noncompliant with medications 3. Hyperlipidemia 4. Anemia P:1. Continue ASA 81 qd, Crestor 40 qd and Norvasc 5 qd 2. PT for gait training 3. residential monitor shows no sig events or pauses 4. Thank you for consultative opportunity
[2017-09-03 18:49] VITALS: BMI 32.5
[2017-09-03 20:47] LABS: CHOLESTEROL 150 mg/dL (50-200); HDL CHOLESTEROL 58 mg/dL (40-60); LDL CHOLESTEROL (ONLY SJRH) 93 mg/dL (5-100); TRIGLYCERIDES 54 mg/dL (35-160)
[2017-09-04] MEDS ORDERED: METOPROLOL TARTRATE 5 MG/5 ML VIAL IVPUSH ONE (05:41)
--- NOTE | 2017-09-04 07:19 | PN ---
Physical Exam: SUBJECTIVE: Patient seen and examined - Pt hypertensive to 200s systolic overnight; IV lopressor 5mg given at 6AM; denies f/c/n/v/d, MENDOZA, cp, sob, cough, ab pain, back pain, dysuria, LE edema; FNDs; OBJECTIVE: Vital Signs Intake & Output 09/01/17 09/02/17 09/03/17 09/04/17 23:59 23:59 23:59 23:59 Intake Total 10 20 Balance 10 20 Weight 80.739 kg Period Temp Pulse Resp BP Sys/Baptiste Pulse Ox Last 24 Hr 98.0 F-98.4 F 69-77 18-20 156-201/62-82 97-99 GENERAL: Elderly woman, NAD HEAD: s/w Right supraorbital ecchymosis noted EYES: PERRL, extraocular movements intact, sclera anicteric, conjunctiva clear. No ptosis. ENT: Poor dentition. Ears normal, nares patent, oropharynx clear without exudates, moist mucous membranes. NECK: Trachea midline, full range of motion, supple. No bruits LUNGS: Breath sounds equal, clear to auscultation bilaterally, no wheezes, no crackles, no accessory muscle use. HEART: IRR IRR, S1, S2 without murmur, rub or gallop. ABDOMEN: Soft, nontender, nondistended, normoactive bowel sounds, no guarding, no rebound, no hepatosplenomegaly, no masses. EXTREMITIES: 2+ pulses, warm, well-perfused, still with trace pedal edema appreciated BL NEUROLOGICAL: Cranial nerves II through XII grossly intact. Normal speech, gait not observed. PSYCH: Normal mood, normal affect. pleasant, interactive SKIN: Warm, dry, normal turgor, no rashes or lesions noted Laboratory Results - last 24 hr CBC, BMP 09/03/17 07:42 09/03/17 07:42 09/03/17 09/03/17 09/03/17 02:10 07:42 07:42 WBC 6.7 D RBC 3.94 Hgb 8.4 L Hct 28.2 L MCV 71.7 L MCH 21.4 L MCHC 29.9 L RDW 19.5 H Plt Count 234 MPV 8.6 Sodium 142 Potassium 3.6 Chloride 109 H Carbon Dioxide 25 Anion Gap 8 BUN 10 Creatinine 0.7 Creat Clearance w eGFR > 60 Random Glucose 133 H Hemoglobin A1c % Calcium 8.6 Phosphorus 3.2 Magnesium 2.0 Transferrin Ferritin Total Bilirubin 0.4 D AST 25 ALT 20 Alkaline Phosphatase 114 Troponin I Total Protein 7.8 Albumin 3.3 L Triglycerides 54 Cholesterol 150 Total LDL Cholesterol 93 HDL Cholesterol 58 Vitamin B12 Serum Folate TSH 09/03/17 09/03/17 09/03/17 07:42 07:42 07:42 WBC RBC Hgb Hct MCV MCH MCHC RDW Plt Count MPV Sodium Potassium Chloride Carbon Dioxide Anion Gap BUN Creatinine Creat Clearance w eGFR Random Glucose Hemoglobin A1c % 5.5 Calcium Phosphorus Magnesium Transferrin Ferritin 18.954 Total Bilirubin AST ALT Alkaline Phosphatase Troponin I 0.03 Total Protein Albumin Triglycerides Cholesterol Total LDL Cholesterol HDL Cholesterol Vitamin B12 556 Serum Folate 19 H TSH 1.23 09/03/17 07:42 WBC RBC Hgb Hct MCV MCH MCHC RDW Plt Count MPV Sodium Potassium Chloride Carbon Dioxide Anion Gap BUN Creatinine Creat Clearance w eGFR Random Glucose Hemoglobin A1c % Calcium Phosphorus Magnesium Transferrin 363 Ferritin Total Bilirubin AST ALT Alkaline Phosphatase Troponin I Total Protein Albumin Triglycerides Cholesterol Total LDL Cholesterol HDL Cholesterol Vitamin B12 Serum Folate TSH Active Medications Generic Name Dose Route Start Last Admin Trade Name Freq PRN Reason Stop Dose Admin Amlodipine Besylate 5 mg 09/03/17 13:45 09/03/17 16:13 Norvasc - PO 5 mg DAILY OSWALD Administration Aspirin 81 mg 09/03/17 10:15 09/03/17 11:11 Ecotrin - PO 81 mg DAILY OSWALD Administration Rosuvastatin Calcium 40 mg 09/04/17 22:00 Crestor - PO [facility] CT HEAD 09/03-Impression [id number] volume loss and ventricular dilatation. The lateral and third ventricles including the temporal horns are relatively more dilated than the fourth. Although this may be due to central atrophy, differential diagnosis includes aqueduct of Sylvius stenosis. Correlate clinically for further evaluation. No mass lesion, gross acute infarct or intracranial hemorrhage are identified. C-SPINE 09/03: The alignment is satisfactory. No gross fracture or subluxation is seen. CXR 09/03 - Congestive changes Carotid doppler 09/03 - Impression: Mild intimal thickening and minimal plaque buildup at the right common carotid bifurcation and bulb as well as mild intimal thickening and a small plaques at the left common carotid bifurcation/ bulb without evidence of hemodynamically significant stenosis, bilaterally. Echo 09/03 - LV size and function are normal, RV pressures 50-60mmhg, mild TR EKG Vent rate 84 bpm Normal sinus rhythm Possible left atrial enlargement Cannot rule out anterior infarct, age undetermined Abnormal ECG ASSESSMENT/PLAN: 77 yo F with pmhx of HTN, HLD, hypothyroidism, who presents s/p mechanical fall secondary to syncopal episode. Pt with no evidence of fx or severe trauma. Will undergo standard syncope w/u with d/c in 24-48 hours. #Syncopal episode - pt endorses prior syncopal episodes in past; follows w/ Dr. Banuelos for cardiology; head CT unremarkable; echo results as noted above - f/u remaining cardiac records; prior hx of ?PPM placement plan -trops neg x2 -Cardiac monitoring -f/u Orthostatics -Carotid doppler results noted above - cardiology consulted, recs appreciated - will likely require outpt stress test - PT eval - consider holter monitor - ASA, crestor #HTN Urgency - pt BP improved from 230s systolic to 150s systolic this PM -Amlodipine 5mg qdaily - No HTN meds at home -q4h vitals - will require counseling on BP monitoring at home, better medical compliance #Microcytic Anemia - Hgb 8.4; microcytic -f/u iron studies -referral for colonoscopy outpatient -stool occult - TSH, vit b12 normal; folate high #HLD -f/u lipid panel - c/w crestor #DVT Ppx Scds FEN PO hydration daily lytes sodium controlled diet Tele obs Plan discussed with Dr. Mercedes Bazzi, PGY1
[2017-09-04 08:09] LABS: SERUM IRON SATURATION 6 % (15-55); TOTAL IRON BINDING CAPACITY 455 ug/dL (250-450); UIBC 428 ug/dL (118-369)
--- NOTE | 2017-09-04 08:22 | PN ---
Teaching Attending Note Name of Resident: Nii Bazzi ATTENDING PHYSICIAN STATEMENT I saw and evaluated the patient. I reviewed the resident's note and discussed the case with the resident. I agree with the resident's findings and plan as documented with exceptions below. SUBJECTIVE: Patient seen and examined. no dizziness or further episodes of LOC. no new complaints. OBJECTIVE: Vital Signs Period Temp Pulse Resp BP Sys/Baptiste Pulse Ox Last 24 Hr 98.0 F-98.4 F 69-77 18-20 156-201/62-82 97-99 Intake & Output 09/01/17 09/02/17 09/03/17 09/04/17 23:59 23:59 23:59 23:59 Intake Total 10 20 Balance 10 20 Weight 178 lb General: ambulating in room, no acute distress Abdomen: soft, obese Extremities: no edema Home Medication List Medication Instructions Recorded Confirmed Type NK [No Known Home Medication] 09/03/17 09/03/17 History Active Medications Generic Name Dose Route Start Last Admin Trade Name Freq PRN Reason Stop Dose Admin Amlodipine Besylate 10 mg 09/04/17 10:00 Norvasc - PO DAILY OSWALD Aspirin 81 mg 09/03/17 10:15 09/03/17 11:11 Ecotrin - PO 81 mg DAILY OSWALD Administration Laboratory Results - last 24 hr 09/03/17 09/03/17 09/03/17 02:10 07:42 07:42 WBC 6.7 D RBC 3.94 Hgb 8.4 L Hct 28.2 L MCV 71.7 L MCH 21.4 L MCHC 29.9 L RDW 19.5 H Plt Count 234 MPV 8.6 Sodium 142 Potassium 3.6 Chloride 109 H Carbon Dioxide 25 Anion Gap 8 BUN 10 Creatinine 0.7 Creat Clearance w eGFR > 60 Random Glucose 133 H Hemoglobin A1c % Calcium 8.6 Phosphorus 3.2 Magnesium 2.0 Iron TIBC Iron Saturation Transferrin Ferritin Total Bilirubin 0.4 D AST 25 ALT 20 Alkaline Phosphatase 114 Troponin I Total Protein 7.8 Albumin 3.3 L Triglycerides 54 Cholesterol 150 Total LDL Cholesterol 93 HDL Cholesterol 58 Vitamin B12 Serum Folate TSH 09/03/17 09/03/17 09/03/17 07:42 07:42 07:42 WBC RBC Hgb Hct MCV MCH MCHC RDW Plt Count MPV Sodium Potassium Chloride Carbon Dioxide Anion Gap BUN Creatinine Creat Clearance w eGFR Random Glucose Hemoglobin A1c % 5.5 Calcium Phosphorus Magnesium Iron 27 TIBC 455 H Iron Saturation 6 L Transferrin Ferritin Total Bilirubin AST ALT Alkaline Phosphatase Troponin I Total Protein Albumin Triglycerides Cholesterol Total LDL Cholesterol HDL Cholesterol Vitamin B12 Serum Folate 19 H TSH 1.23 09/03/17 09/03/17 07:42 07:42 WBC RBC Hgb Hct MCV MCH MCHC RDW Plt Count MPV Sodium Potassium Chloride Carbon Dioxide Anion Gap BUN Creatinine Creat Clearance w eGFR Random Glucose Hemoglobin A1c % Calcium Phosphorus Magnesium Iron TIBC Iron Saturation Transferrin 363 Ferritin 18.954 Total Bilirubin AST ALT Alkaline Phosphatase Troponin I 0.03 Total Protein Albumin Triglycerides Cholesterol Total LDL Cholesterol HDL Cholesterol Vitamin B12 556 Serum Folate TSH 2D echo and carotid results reviewed ASSESSMENT AND PLAN: 77 yof prior h/o HTN, ?Told to have PPM, not recent follow up admitted with syncope -Syncope, vague h/o of being told of ?PPM, h/o exertional dyspnea -Uncontrolled HTN, suspect from non compliance -Mechanical fall with forehead contusion Plan: 2D echo/carotids noted. ?h/o being told to need ?PPM, also exertion dyspnea. Retrieve outpatient records. Cardiology consult noted. May benefit from outpatient holter and stress test outpatient once BP better controlled. Increase amlodipine to 10 mg daily, lipid panel noted. D/c statin. Outpatient monitoring. Diet couseling. PT eval. Dispo pending PT eval and Improved BP. Plan discussed with patient in detail, all questions answered.
[2017-09-04] MEDS: ASPIRIN COATED 81 MG TABLET.EC PO SCH (09:14)
[2017-09-04] MEDS ORDERED: amLODIPine BESYLATE 10 MG TABLET (FP) PO SCH (10:00)
--- NOTE | 2017-09-04 11:35 | PN ---
Progress Note, Physician History of Present Illness: No further near or true syncope, BP remains elevated. - Current Medication List Current Medications: Active Medications Amlodipine Besylate (Norvasc -) 10 mg PO DAILY [facility] Last Admin: 09/04/17 09:14 Dose: 10 mg Aspirin (Ecotrin -) 81 mg PO DAILY [facility] Last Admin: 09/04/17 09:14 Dose: 81 mg - Objective Vital Signs: Vital Signs Temperature 98.0 F 09/04/17 08:17 Pulse Rate 71 09/04/17 08:17 Respiratory Rate 16 09/04/17 08:17 Blood Pressure 184/79 09/04/17 08:17 O2 Sat by Pulse Oximetry (%) 99 09/04/17 06:00 Constitutional: Yes: No Distress, Calm Neck: Yes: Supple Cardiovascular: Yes: Regular Rate and Rhythm Respiratory: Yes: Regular, CTA Bilaterally Gastrointestinal: Yes: Normal Bowel Sounds, Soft Edema: No Labs: CBC, BMP 09/03/17 07:42 09/03/17 07:42 INR, PTT INR 1.10 (0.82-1.09) 09/03/17 02:10 Problem List - Problems (1) Hypertensive cardiomyopathy Code(s): I11.9 - HYPERTENSIVE HEART DISEASE WITHOUT HEART FAILURE; I43 - CARDIOMYOPATHY IN DISEASES CLASSIFIED ELSEWHERE Qualifiers: Heart failure presence: without heart failure Qualified Code(s): I11.9 - Hypertensive heart disease without heart failure; I43 - Cardiomyopathy in diseases classified elsewhere; I43 - Cardiomyopathy in diseases classified elsewhere; I43 - Cardiomyopathy in diseases classified elsewhere; I43 - Cardiomyopathy in diseases classified elsewhere (2) Syncope Code(s): R55 - SYNCOPE AND COLLAPSE Qualifiers: Syncope type: vasovagal syncope Qualified Code(s): R55 - Syncope and collapse (3) Hyperlipidemia Code(s): E78.5 - HYPERLIPIDEMIA, UNSPECIFIED (4) Anemia Code(s): D64.9 - ANEMIA, UNSPECIFIED Qualifiers: Anemia type: unspecified type Qualified Code(s): D64.9 - Anemia, unspecified Assessment/Plan 09/03/2017 Echo: Normal LV size and fxn, no , mild MR, TR RVSP 50-60 mmHg 1. Post mechanical fall, possible syncope 2. Hypertensive cardiomyopathy, noncompliant with medications 3. Hyperlipidemia 4. Anemia P:1. Continue ASA 81 qd, d/tod Crestor 40 qd and increased Norvasc 10 qd, f/u BP control 2. PT for gait training 3. 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
--- NOTE | 2017-09-04 12:09 | MSN ---
Progress Note (short form) - Note Progress Note: SUBJECTIVE: Patient seen and examined this morning. Overnight, patient was hypertensive (201/82) but remained asymptomatic. She was given lopressor 5 mg IV with a mild reduction in blood pressure 188/80. Other vital signs stable. She continued to deny headache, lightheadedness or dizziness. conveyor monitor recorded no significant events or pauses. Patient has no new complaints this morning. She continues to have tenderness in the right supraorbital region but denies headache, changes in vision, or dizziness. She also has mild chronic b/l knee pain. She denies chest pain, SOB, calf tenderness, flank pain, or dysuria. She is eating well and ambulating to the bathroom without assistance. OBJECTIVE: Vital Signs Period Temp Pulse Resp BP Sys/Baptiste Pulse Ox Last 24 Hr 98.0 F-98.4 F 69-76 16-20 156-201/62-82 97-99 GENERAL: Elderly woman standing at window alert and comfortable HEAD: Right resolving supra-orbital ecchymosis, tender to palpation EYES: Sclera darkening, conjunctival pallor, extra-occular muscles intact MOUTH: Moist mucous membranes, poor dentition, no lesions or plaques, uvula midline NECK: Limited range of motion, no lymphadenopathy or thyromegaly, no carotid bruits, trachea mid-line CARDIOVASCULAR: Regular at 70 bpm with S1/S2, no murmurs, rubs, or gallops; no JVD LUNGS: Clear to auscultation b/l, breath sounds equal, no wheezes or crackles ABDOMEN: Normoactive bowel sounds, soft, non-tender, no pulsatile masses, no organomegaly EXTREMITIES: 2+ pulses b/l, no pedal edema, no calf tenderness, left 1st toe partial amputation NEURO: Cranial nerves II-XII grossly intact, normal speech, slow slightly unsteady gait Laboratory Results - last 24 hr 09/03/17 09/03/17 09/03/17 02:10 07:42 07:42 Iron 27 TIBC 455 H Iron Saturation 6 L Transferrin 363 Triglycerides 54 Cholesterol 150 Total LDL Cholesterol 93 HDL Cholesterol 58 CBC, BMP 09/03/17 07:42 09/03/17 07:42 IMAGING: CT-Head: No acute pathology C-Spine X-Ray: No fracture EKG: Sinus rhythm with left atrial enlargement CXR: Large heart with sclerotic aortic knob and vascular congestion Carotid doppler: No evidence of significant stenosis b/l Echo: normal ejection fraction > 40%, no left ventricular hypertrophy, elevated right ventricle pressure (50 - 60 mm Hg) ASSESSMENT/PLAN: 77 yr old female, non-complaint with medications for 3 years with history of HTN , hyperlipidemia, hyperthyroidism, and pulmonary hypertension who presented to the ED after a fall/syncopal episode and was found to have hypertensive urgency. #Hypertensive urgency-Continuing to adjust patient's blood pressure regimen as she has been non-complaint with medications for about 3 years. Due to her syncope will avoid beta-blockers. -Increase amlopidine to amlopidine 10 mg QD -Explained to patient of the importance of taking maintance medications as prescribed and long-term -She will need close out-patient follow-up with PCP to maintain goal blood pressure (<150/90) #Syncope with [id number] for a cardiogenic etiology. EKG normal sinus rhythm , echo demonstrated normal EF, no significant events on conveyor monitor. Patient had seen cardiology in 2011 and had a negative nuclear stress test. Impression at the time was of pulmonary hypertension and the patient was recommended for follow-up with pulmonology and a sleep study. -Patient should follow-up with cardiology to determine need for out-patient holter monitor -PT evaluation to assess gait and determine if patient would benefit from use of a walker #Microcytic anemia-Lab studies indicate an iron-deficiency anemia (elevated TIBC and low iron saturation); patient has never had a colonoscopy -FOBT ordered -Replace iron stores with ferrous sulfate 325 mg qd -Recommend patient to follow-up as outpatient to determine need for colonoscopy #FEN- sodium reduced diet #Dispo-patient requires close outpatient follow-up for long-term maintenance of chronic conditions
[2017-09-04 15:05] VITALS: BP 146/59; PULSE 64; TEMP 98.7
[2017-09-04] MEDS ORDERED: ROSUVASTATIN CA 20 MG TABLET (FP) PO SCH (22:00)
[2017-09-05] MEDS ORDERED: FERROUS SO4 325 MG TABLET (FP) PO SCH (10:00)
--- NOTE | 2017-09-05 14:30 | DS ---
Physical Exam: SUBJECTIVE: Patient seen and examined - Pt hypertensive to 200s systolic overnight; IV lopressor 5mg given at 6AM; denies f/c/n/v/d, MENDOZA, cp, sob, cough, ab pain, back pain, dysuria, LE edema; FNDs; OBJECTIVE: Vital Signs Period Temp Pulse Resp BP Sys/Baptiste Pulse Ox Last 24 Hr 98.7 F 64 18 146/59 PHYSICAL EXAM GENERAL: Elderly woman, NAD HEAD: s/w Right supraorbital ecchymosis noted EYES: PERRL, extraocular movements intact, sclera anicteric, conjunctiva clear. No ptosis. ENT: Poor dentition. Ears normal, nares patent, oropharynx clear without exudates, moist mucous membranes. NECK: Trachea midline, full range of motion, supple. No bruits LUNGS: Breath sounds equal, clear to auscultation bilaterally, no wheezes, no crackles, no accessory muscle use. HEART: IRR IRR, S1, S2 without murmur, rub or gallop. ABDOMEN: Soft, nontender, nondistended, normoactive bowel sounds, no guarding, no rebound, no hepatosplenomegaly, no masses. EXTREMITIES: 2+ pulses, warm, well-perfused, still with trace pedal edema appreciated BL NEUROLOGICAL: Cranial nerves II through XII grossly intact. Normal speech, gait not observed. PSYCH: Normal mood, normal affect. pleasant, interactive SKIN: Warm, dry, normal turgor, no rashes or lesions noted LABS Laboratory Last Values WBC 6.7 K/mm3 (4.0-10.0) D 09/03/17 07:42 RBC 3.94 M/mm3 (3.60-5.2) 09/03/17 07:42 Hgb 8.4 GM/dL (10.7-15.3) L 09/03/17 07:42 Hct 28.2 % (32.4-45.2) L 09/03/17 07:42 MCV 71.7 fl (80-96) L 09/03/17 07:42 MCH 21.4 pg (25.7-33.7) L 09/03/17 07:42 MCHC 29.9 g/dl (32.0-36.0) L 09/03/17 07:42 RDW 19.5 % (11.6-15.6) H 09/03/17 07:42 Plt Count 234 K/MM3 (134-434) 09/03/17 07:42 MPV 8.6 fl (7.5-11.1) 09/03/17 07:42 Neutrophils % 67.4 % (42.8-82.8) 09/03/17 02:10 Lymphocytes % 23.6 % (8-40) 09/03/17 02:10 Monocytes % 6.8 % (3.8-10.2) 09/03/17 02:10 Eosinophils % 2.0 % (0-4.5) 09/03/17 02:10 Basophils % 0.2 % (0-2.0) 09/03/17 02:10 Hypochromia 2+ 09/03/17 02:10 Anisocytosis 2+ 09/03/17 02:10 Microcytosis 2+ 09/03/17 02:10 PT with INR 12.40 SEC (9.7-13.0) 09/03/17 02:10 INR 1.10 (0.82-1.09) 09/03/17 02:10 Sodium 142 mmol/L (136-145) 09/03/17 07:42 Potassium 3.6 mmol/L (3.5-5.1) 09/03/17 07:42 Chloride 109 mmol/L (98-107) H 09/03/17 07:42 Carbon Dioxide 25 mmol/L (21-32) 09/03/17 07:42 Anion Gap 8 (8-16) 09/03/17 07:42 BUN 10 mg/dL (7-18) 09/03/17 07:42 Creatinine 0.7 mg/dL (0.55-1.02) 09/03/17 07:42 Creat Clearance w eGFR > 60 (>60) 09/03/17 07:42 Random Glucose 133 mg/dL (74-106) H 09/03/17 07:42 Hemoglobin A1c % 5.5 % (4.8-6.0) 09/03/17 07:42 Calcium 8.6 mg/dL (8.5-10.1) 09/03/17 07:42 Phosphorus 3.2 mg/dL (2.5-4.9) 09/03/17 07:42 Magnesium 2.0 mg/dL (1.8-2.4) 09/03/17 07:42 Iron 27 ug/dL (27-139) 09/03/17 07:42 TIBC 455 ug/dL (250-450) H 09/03/17 07:42 Iron Saturation 6 % (15-55) L 09/03/17 07:42 Transferrin 363 mg/dL (200-370) 09/03/17 07:42 Ferritin 18.954 ng/ml (6.9-282.5) 09/03/17 07:42 Total Bilirubin 0.4 mg/dL (0.2-1.0) D 09/03/17 07:42 AST 25 U/L (15-37) 09/03/17 07:42 ALT 20 U/L (12-78) 09/03/17 07:42 Alkaline Phosphatase 114 U/L (45-117) 09/03/17 07:42 Creatine Kinase 70 IU/L (26-192) 09/03/17 02:10 Troponin I 0.03 ng/ml (0.00-0.05) 09/03/17 07:42 B-Natriuretic Peptide 1068.83 pg/ml (5-450) H 09/03/17 02:10 Total Protein 7.8 g/dl (6.4-8.2) 09/03/17 07:42 Albumin 3.3 g/dl (3.4-5.0) L 09/03/17 07:42 Triglycerides 54 mg/dL (35-160) 09/03/17 02:10 Cholesterol 150 mg/dL (50-200) 09/03/17 02:10 Total LDL Cholesterol 93 mg/dL (5-100) 09/03/17 02:10 HDL Cholesterol 58 mg/dL (40-60) 09/03/17 02:10 Vitamin B12 556 pg/ml (180-914) 09/03/17 07:42 Serum Folate 19 ng/ml (3.1-17.5) H 09/03/17 07:42 TSH 1.23 uIU/ml (0.358-3.74) 09/03/17 07:42 Urine Color Straw 09/03/17 03:30 Urine Appearance Clear 09/03/17 03:30 Urine pH 7.0 (5.0-8.0) 09/03/17 03:30 Ur Specific [place] 1.012 (1.001-1.035) 09/03/17 03:30 Urine Protein 1+ (NEGATIVE) H 09/03/17 03:30 Urine Glucose (UA) Negative (NEGATIVE) 09/03/17 03:30 Urine Ketones Negative (NEGATIVE) 09/03/17 03:30 Urine Blood Negative (NEGATIVE) 09/03/17 03:30 Urine Nitrite Negative (NEGATIVE) 09/03/17 03:30 Urine Bilirubin Negative (<2.0 mg/dL) 09/03/17 03:30 Urine Urobilinogen 2.0 mg/dL (0.2-1.0) H 09/03/17 03:30 Ur Leukocyte Esterase Negative (NEGATIVE) 09/03/17 03:30 Urine WBC (Auto) 2 /hpf (3-5) 09/03/17 03:30 Urine RBC (Auto) <1 /hpf (0-3) 09/03/17 03:30 CT HEAD 09/03-Impression Glgk-it-[id number] volume loss and ventricular dilatation. The lateral and third ventricles including the temporal horns are relatively more dilated than the fourth. Although this may be due to central atrophy, differential diagnosis includes aqueduct of Sylvius stenosis. Correlate clinically for further evaluation. No mass lesion, gross acute infarct or intracranial hemorrhage are identified. C-SPINE 09/03: The alignment is satisfactory. No gross fracture or subluxation is seen. CXR 09/03 - Congestive changes Carotid doppler 09/03 - Impression: Mild intimal thickening and minimal plaque buildup at the right common carotid bifurcation and bulb as well as mild intimal thickening and a small plaques at the left common carotid bifurcation/ bulb without evidence of hemodynamically significant stenosis, bilaterally. Echo 09/03 - LV size and function are normal, RV pressures 50-60mmhg, mild TR EKG Vent rate 84 bpm Normal sinus rhythm Possible left atrial enlargement Cannot rule out anterior infarct, age undetermined Abnormal ECG Consults Cardiology - Dr. Lovett HOSPITAL COURSE: prehospital course: Patient is a non-compliant, 77 yo F with pmhx of HTN, HLD, hypothyroidism, presented to the ED after "passing out". She said she picked up her food from the delivery ryan outside and felt dizzy as she walked back inside the house. She does not remember how long she was out for. She says this happened to her in the past a few times. She also mentions always getting dizzy when getting up from a seated position very quickly. Patient says she has "heart problems" but does not have a PCP or front end java developer. She also has not been on any meds in a long time. She denies SOB, chest pain, headache, dysuria, diarrhea, nausea, vomiting, fevbers. ER course was notable for: (1) BP 231/69 (2) Hgb 8.4 hospital course: On admission, Pt BP 231/69, received 5mg Iv lopressor and 5mg PO amlodipine, decreased to 180s systolic. Initial labs notable for anemia 8.4 and BNP of 1068. Normal lipid profile, trops negative x2. No other lab abnormalities. UA normal. EKG with NSR. CT head as noted above. Carotid dopplers ordered, results as above. CXR with congestive changes. CT spine with no gross fractures or deformities. Echo ordered, results as above. Pt with no further episodes of lightheadness or syncope on admission. Pt placed on traffic monitor specialist; no events during stay. Pt BP initially difficult to control, spiked up again to 200s systolic on day 2 of admission overnight, received 5mg IV lopressor with improvement. Pt amlodipine increased to 10mg PO. Repeat BP improved to 120/70. Given unremarkable work-up, pt d/c'ed home with ASA, amlodipine and ferrous sulfate for new medication regimen. Referred for outpt cardiac f/u and recommendation for cardiac stress test as pt endorsed worsening dyspnea on exertion in past few months. Date of Admission:09/03/17 Date of Discharge: 09/05/17 Pt is medically cleared for discharge with outpt f/u with cardiology and PCP. Minutes to complete discharge: 35 Discharge Summary Reason For Visit: SYNCOPE Condition: Stable - Instructions Diet, Activity, Other Instructions: During your stay at [facility], you were evaluated for a fainting episode, known as syncope. All testing was normal during your admission. However, you are advised to follow-up with your front end java developer, Dr. Banuelos, for further evaluation of your cardiac health. We also recommend that you receive an outpatient stress test to further evaluate if your heart experiences periods of decreased blood flow which can potentially precipitate a heart attack. Discuss outpatient Holter monitoring with your doctor. Medications: The following medications were added to your home regimen. Please take them as specified below: Aspirin 81mg, take one pill by mouth once a day. This medication is to help prevent clots. Amlodipine 10mg, take one pill once a day by mouth. This medication is to help with your elevated blood pressure. Feosol 325mg, take one pill by mouth once a day. This medication is an iron supplement. Side effects include constipation and dark stools. Do not be alarmed if you note these symptoms. Please continue to take all other home medications as previously directed. Follow-ups: Please follow-up with your primary care physician in one week for further management of your medications. If you require a referral for a primary care provider, we have provided the contact information for the resident clinic in the packet. Please call the office to schedule an appointment. Please call within one week to schedule an appointment. Please follow-up with your front end java developer, Dr. Banuelos, in one week for further management of your cardiac care. His contact number has been provided in this packet. Please call his office to make an appointment. We recommend that you receive a cardiac stress test as an outpatient. Please bring this to the attention of Dr. Banuelos during your follow-up appointment. You may require a Holter monitor, a device that continuously records the electrical activity of your heart to evaluate for the presence of an abnormal heart rhythm, in order to further evaluate the source of your syncope. You were also diagnosed with anemia during your stay at [facility]. We have started you on iron supplements. We also recommend that you received an outpt colonoscopy in 6-8 weeks upon discharge to evaluate for any possible suspicious masses or bleeds in your colon and lower GI tract. If you do not desire a colonoscopy, please discuss with your doctor about routine stool occult blood screening tests as a substitute. Diet/exercise: Do not drive or operate heavy machinery till seen by your doctor. Avoid sudden postural changes or intense exercises till evaluated by your doctor You are cleared for a regular diet upon discharge. Please advance your exercise routine as tolerated. If you become lightheaded, please cease all activity and rest. You were seen by physical therapist and advised to use a cane with ambulation. Please return to the hospital if you experience any of the following symptoms: - Persistent dizziness, lightheadedness - Worsening shortness of breath at rest - Sensation of increased or irregular heart rate - Any chest pain or tightness - Any new or concerning symptoms Referrals: Brandt Lundy MD [Staff Physician] - 1 Week Tong Banuelos MD [Staff Physician] - 1 Week Disposition: HOME - Home Medications Comprehensive Discharge Medication List: Ambulatory Orders Amlodipine Besylate [Norvasc -] 10 mg PO DAILY #30 tablet 09/04/17 Aspirin Coated [Ecotrin -] 81 mg PO DAILY #30 tablet.ec 09/04/17 Ferrous Sulfate [Feosol] 325 mg PO DAILY #30 ud 09/04/17 This patient is new to me today: No Emergency Visit: Yes ED Registration Date: 09/03/17 Care time: The patient presented to the Emergency Department on the above date and was hospitalized for further evaluation of their emergent condition. Critical Care patient: No - Discharge Referral Referred to [facility] Med [facility].: No
== END 2017-09-04 18:11 | disposition home or self-care (01) ==
LOC: JER 01:16 → JERBED 04:38 → UNDOADMOB 04:42 → JERBED 04:42 → J4W 21:01
PROVIDERS: ADMIT Internal Medicine; ATTEND Hospitalist
PROC: 3E033GC Introduction of Other Therapeutic Substance into Peripheral Vein, Percutaneous Approach (ICD-10-PCS; principal; 2017-09-03)
DX: R55 Syncope and collapse (principal); D50.9 Iron deficiency anemia, unspecified; I16.0 Hypertensive urgency; I10 Essential (primary) hypertension; I11.9 Hypertensive heart disease without heart failure; I43 Cardiomyopathy in diseases classified elsewhere; E78.5 Hyperlipidemia, unspecified; E03.9 Hypothyroidism, unspecified; Z91.19 Patient's noncompliance with other medical treatment and regimen; S00.83XA Contusion of other part of head, initial encounter; W18.39XA Other fall on same level, initial encounter; Y93.89 Activity, other specified; Y92.008 Other place in unspecified non-institutional (private) residence as the place of occurrence of the external cause
CPT/HCPCS: 36415; 70450-TC; 71045-TC-FY; 72125-TC; 80053; 80061; 81003; 81015; 82550; 82607; 82728; 82746; 83036; 83540; 83550; 83721; 83735; 83880; 84100; 84443; 84466; 84484; 85025; 85027; 85610; 93005; 93010; 93306-TC; 93880-TC; 96374; 96376; 97116-GP; 97161-GP; 99285-25; G0378

== ENCOUNTER 2018-05-22 07:39 | Inpatient (IN) | payer OTHER ==
--- NOTE | 2018-05-22 07:48 | PDOC ---
History of Present Illness - General Stated Complaint: Altered Mental Status Time Seen by Provider: 05/22/18 07:44 History Source: Patient, Family (Granddaughter at bedside) Exam Limitations: No Limitations - History of Present Illness Initial Comments: HPI: 78 y/o female BIBEMS to [facility] ER with familial complaint of increased confusion and slurred speech. Pt interview technically limited as pt is alert to person only. Granddaughter arrived at bedside and reports finding the pt in the bathroom this morning confused, unable to follow commands, and with slurred speech. Believes pt has fallen multiple times yesterday but not aware of pt losing consciousness. States the pt has been increasingly confused over the past several weeks but normally able to follow commands. Family unable to recall details of medical history or medications but believes the pt has not taken home medications in approx. 2 months because she ran out. Possible diagnosis of hypertension. Does not believe pt to be taking ASA or other anticoagulants. PCP: Unable to recall Medical Hx: Per previous [facility] encounters - HTN - HLD - Hypothyroidism - Hypertensive cardiomyopathy, echo 09/03/17 revealed normal LV size and function Past History - Past Medical History Allergies/Adverse Reactions: Allergies Allergy/AdvReac Type Severity Reaction Status Date / Time No Known Allergies Allergy Verified 05/22/18 07:46 Home Medications: Ambulatory Orders Amlodipine Besylate [Norvasc -] 10 mg PO DAILY 05/22/18 Aspirin [ASA -] 81 mg PO DAILY 05/22/18 Ferrous Sulfate [Iron] 325 mg PO DAILY 05/22/18 Cardiac Disorders: Yes (cad) COPD: No HTN: Yes Seizures: Yes (hypo) - Immunization History Immunization Up to Date: Yes - Suicide/Smoking/Psychosocial Hx Smoking History: Never smoked Have you smoked in the past 12 months: No Hx Alcohol Use: No Drug/Substance Use Hx: No Substance Use Type: None Review of Systems - Review of Systems Able to Perform ROS?: No (Disoriented ) *Physical Exam - Physical Exam Comments: Constitutional: Well-developed, well-nourished, nontoxic elderly female in no acute distress or obvious discomfort. Found semi-fowlers on hospital bed. Alert and oriented to person only. Speech was non-labored, non-pressured. Head: Normocephalic. No obvious external signs of trauma. No Battles sign or periorbital bruising. Eyes: Pupils 3mm and PERRL bilaterally. Sclerae white. Conjunctiva moist and not injected. EARS: Hearing grossly intact. NOSE: No nasal discharge. Neck: Supple, trachea is midline. Cardiovascular: Regular rate and regular rhythm. No murmur, rubs, clicks, or gallops. Peripheral pulses: Radial pulses full. 1+ pitting edema bilaterally. Respiratory: Breathing unlabored. Equal chest rise and fall. Clear to auscultation bilaterally. No stridor, no wheezing, no rhonchi. Gastrointestinal: abdomen is soft, non-tender, non-distended. Neuro: Alert and oriented to person. Moving all four extremities spontaneously without obvious weakness or favoring. Will not follow commands to participate in further neurologic exam. Skin: Warm, dry, and intact. Psych: Affect: appropriate. Mood: normal. ED Treatment Course - LABORATORY CBC & Chemistry Diagram: 05/22/18 08:30 05/22/18 08:41 *DC/Admit/Observation/Transfer Diagnosis at time of Disposition: Slurred speech Altered mental status, unspecified Qualifiers: Altered mental status type: disorientation Qualified Code(s): R41.0 - Disorientation, unspecified - Discharge Dispostion Condition at time of disposition: Fair Decision to Admit order: Yes - Referrals - Patient Instructions - Post Discharge Activity
[2018-05-22 07:49] VITALS: BMI 25.8
[2018-05-22 08:57] LABS: URINE APPEARANCE CLEAR; URINE BILIRUBIN NEGATIVE (<2.0 mg/dL); URINE COLOR STRAW; URINE GLUCOSE (UA) NEGATIVE (NEGATIVE); URINE KETONE TRACE (NEGATIVE); URINE LEUK ESTERASE NEGATIVE (NEGATIVE); URINE NITRITE NEGATIVE (NEGATIVE); URINE PROTEIN NEGATIVE (NEGATIVE)
[2018-05-22 08:58] LABS: BASO % 0.3 % (0-2.0); EOS % 0.1 % (0-4.5); HEMATOCRIT 33.4 % (32.4-45.2); HEMOGLOBIN 11.1 GM/dL (10.7-15.3); LYMPH % 16.9 % (8-40); MCH 29.1 pg (25.7-33.7); MCHC 33.3 g/dl (32.0-36.0); MEAN CELL VOLUME 87.4 fl (80-96); MEAN PLT VOLUME 9.6 fl (7.5-11.1); MONO % 7.5 % (3.8-10.2); NEUT % 75.2 % (42.8-82.8); PLATELET COUNT 198 K/MM3 (134-434); RBC 3.82 M/mm3 (3.60-5.2); RDW 15.1 % (11.6-15.6); WHITE BLOOD COUNT 4.8 K/mm3 (4.0-10.0)
[2018-05-22 09:10] LABS: INR 1.08 (0.83-1.09); PROTHROMBIN TIME (PATIENT) 12.7 SEC (9.7-13.0)
[2018-05-22 09:12] LABS: ACTIVATED PTT 24.2 SECONDS (25.2-36.5)
[2018-05-22 09:41] LABS: ALBUMIN 3.2 g/dl (3.4-5.0); ALK PHOS 102 U/L (45-117); ANION GAP 7 MMOL/L (8-16); BILIRUBIN,TOTAL 0.5 mg/dL (0.2-1); BLOOD UREA NITROGEN 16 mg/dL (7-18); CALCIUM 8.8 mg/dL (8.5-10.1); CHLORIDE 106 mmol/L (98-107); CO2 28 mmol/L (21-32); CREATININE 0.7 mg/dL (0.55-1.3); GLUCOSE,RANDOM 105 mg/dL (74-106); POTASSIUM 4.6 mmol/L (3.5-5.1); SGOT/AST 41 U/L (15-37); SGPT/ALT 28 U/L (13-61); SODIUM 141 mmol/L (136-145); TOT PROT 7.7 g/dl (6.4-8.2)
--- NOTE | 2018-05-22 09:55 | PDOC ---
Attending Attestation - Resident Resident Name: Jaxson Condon - ED Attending Attestation I have performed the following: I have examined & evaluated the patient, The case was reviewed & discussed with the resident, I agree w/resident's findings & plan, Exceptions are as noted - HPI HPI: 05/22/18 09:52 78yo F hx HTN, HL, hypothyroidism, CM BIBEMS for increasing confusion. Pt has also had slurred speech since this morning but that improved on the way to the hospital. Germain states she has had progressive confusion for a few weeks , but seemed more confused this morning, could not tell her what her name was which is abnormal for her. Germain also reports a family member stated that the pt had a "few falls" yesterday that she did not witness. Pt is unable to contribute to the history due to confusion. - Physicial Exam PE: 05/22/18 10:35 agree with resident exam - Medical Decision Making 05/22/18 10:36 78yo F hx HTN, hypothyroidism presents to the ED with increasing confusion, and resolved slurred speech. Pt also had unwitnessed fall yesterday. Plan for infectious, neurologic, toxic, metabolic, traumatic and ischemic w/u. Anticipate admission. Heart Score/ECG Review #1 05/22/18 10:35 Twelve-lead EKG was performed and reviewed by me. Sinus rhythm, rate 81. Brief sinus pause noted on EKG. No CASTILLO or TWI
--- NOTE | 2018-05-22 11:53 | EKG ---
Test Reason : Blood Pressure : / mmHG Vent. Rate : 081 BPM Atrial Rate : 081 BPM P-R Int : 164 ms QRS Dur : 076 ms QT Int : 352 ms P-R-T Axes : 041 017 068 degrees QTc Int : 408 ms SINUS RHYTHM WITH MARKED SINUS ARRHYTHMIA ANTERIOR INFARCT (CITED ON OR BEFORE 03-SEP-2017) ABNORMAL ECG WHEN COMPARED WITH ECG OF 03-SEP-2017 02:04, NO SIGNIFICANT CHANGE WAS FOUND Confirmed by KIERRA GEORGE, YUNIEL ([id number]) on 05/22/2018 11:53:16 AM Referred By: Confirmed By:YUNIEL LOZADA MD
[2018-05-22] MEDS ORDERED: SODIUM CHLORIDE 1,000 ML IV SCH (14:30)
--- NOTE | 2018-05-22 14:49 | HP ---
CHIEF COMPLAINT: confusion, slurred speech PCP: Dr Marinelli HISTORY OF PRESENT ILLNESS: The patient is a 78 year old female with a PMH of HTN, hyperlipidemia, hypothyroidism that was brought by ambulance for confusion. As per her granddaughter, she fell several times yesterday at home but didn't have any injuries and was oriented. This morning she noticed that her grandmother couldn' t recognize anyone, and had slurred speech so she called ambulance. She admits that for the past few months Ms Garcia has been progressively more confused. The patient was not able to answer any of my questions, didn't follow commands and didn't recognize her other granddaughter that was present at bedside. Of note the patient hasn't taken any medications for the past few months. She lives with her granddaughter. ER course was notable for: (1)CBC, CMP (2)UA (3)u tox negative PAST MEDICAL HISTORY: as above PAST SURGICAL HISTORY: hysterectomy, left toe amputation, cataract surgery Social History: Smoking:no Alcohol:no Drugs: no Family History: N/A Allergies No Known Allergies Allergy (Verified 05/22/18 07:46) HOME MEDICATIONS: Home Medications Medication Instructions Recorded Amlodipine Besylate [Norvasc -] 10 mg PO DAILY 05/22/18 Aspirin [ASA -] 81 mg PO DAILY 05/22/18 Ferrous Sulfate [Iron] 325 mg PO DAILY 05/22/18 Rosuvastatin Calcium [Crestor] 40 mg PO DAILY 05/22/18 REVIEW OF SYSTEMS N/A PHYSICAL EXAMINATION Vital Signs - 24 hr 05/22/18 05/22/18 05/22/18 07:45 07:46 08:00 Temperature 98.0 F 99.4 F Pulse Rate 87 Pulse Rate [ Right] Respiratory 18 Rate Blood Pressure 187/94 H Blood Pressure [Right Arm] O2 Sat by Pulse 100 98 Oximetry (%) 05/22/18 10:55 Temperature 98.5 F Pulse Rate Pulse Rate [ 73 Right] Respiratory 18 Rate Blood Pressure Blood Pressure 217/65 H [Right Arm] O2 Sat by Pulse 98 Oximetry (%) GENERAL: AAOx0, in no acute distress, agitated. HEAD: Normal with no signs of trauma. EYES: Extraocular movements not able to assess, sclera anicteric, conjunctiva clear. EARS, NOSE, THROAT: Oropharynx clear without exudates. Dry mucous membranes. NECK: Normal range of motion, supple without lymphadenopathy, JVD, or masses. LUNGS: Breath sounds equal, clear to auscultation bilaterally. No wheezes, and no crackles. No accessory muscle use. HEART: Regular rate and rhythm, normal S1 and S2 without murmur, rub or gallop. ABDOMEN: Soft, nontender, not distended, normoactive bowel sounds, no guarding, no rebound, no masses. MUSCULOSKELETAL: Limited ROM in left knee, no bony deformities or tenderness. No CVA tenderness. UPPER EXTREMITIES: No peripheral edema. LOWER EXTREMITIES: 2+ pulses, warm, no calf tenderness. No peripheral edema, swollen left knee, fungus in toenails, amputated left toe, hyperpigmentation in feet bilaterally. NEUROLOGICAL: Cranial nerves not assessed, slurred speech, not following commands. PSYCHIATRIC: Cooperative. Good eye contact. Appropriate mood and affect. SKIN: Warm, dry, normal turgor, no rashes. Laboratory Results - last 24 hr 05/22/18 05/22/18 05/22/18 08:30 08:40 08:41 WBC 4.8 RBC 3.82 Hgb 11.1 Hct 33.4 D MCV 87.4 MCH 29.1 D MCHC 33.3 RDW 15.1 D Plt Count 198 MPV 9.6 D Absolute Neuts (auto) 3.6 Neutrophils % 75.2 Lymphocytes % 16.9 D Monocytes % 7.5 Eosinophils % 0.1 D Basophils % 0.3 Nucleated RBC % 0 PT with INR 12.70 INR 1.08 PTT (Actin FS) 24.2 L Sodium Potassium Chloride Carbon Dioxide Anion Gap BUN Creatinine Creat Clearance w eGFR POC Glucometer Random Glucose Calcium Total Bilirubin AST ALT Alkaline Phosphatase Troponin I Total Protein Albumin TSH Urine Color Straw Urine Appearance Clear Urine pH 7.0 Ur Specific [place] 1.013 Urine Protein Negative Urine Glucose (UA) Negative Urine Ketones Trace H Urine Blood Negative Urine Nitrite Negative Urine Bilirubin Negative Urine Urobilinogen 2.0 H Ur Leukocyte Esterase Negative Salicylates Acetaminophen Alcohol, Quantitative 05/22/18 05/22/18 08:41 09:09 WBC RBC Hgb Hct MCV MCH MCHC RDW Plt Count MPV Absolute Neuts (auto) Neutrophils % Lymphocytes % Monocytes % Eosinophils % Basophils % Nucleated RBC % PT with INR INR PTT (Actin FS) Sodium 141 Potassium 4.6 Chloride 106 Carbon Dioxide 28 Anion Gap 7 L BUN 16 Creatinine 0.7 Creat Clearance w eGFR > 60 POC Glucometer 112.97168 Random Glucose 105 Calcium 8.8 Total Bilirubin 0.5 AST 41 H ALT 28 Alkaline Phosphatase 102 Troponin I 0.02 Total Protein 7.7 Albumin 3.2 L TSH 0.79 Urine Color Urine Appearance Urine pH Ur Specific [place] Urine Protein Urine Glucose (UA) Urine Ketones Urine Blood Urine Nitrite Urine Bilirubin Urine Urobilinogen Ur Leukocyte Esterase Salicylates < 1.7 L Acetaminophen < 2.0 L Alcohol, Quantitative < 3.0 ASSESSMENT/PLAN: The patient is a 78 year old female with a PMH of HTN, hyperlipidemia, hypothyroidism that was brought by ambulance for confusion slurred speech and s/ p fall the day before admission. She is admitted to telemetry r/o stroke. R/O Stroke: -the patient presented with confusion, slurred speech. Lab work nl, vitals positive for elevated BP. Stroke protocol ordered, CT negative, Neurology was called by ED, Dr Castro recommended MRI -will obtain speech and swallow evaluation, for now NPO -Carotid dupplex, ordered ECHO -lipid panel ordered, normal lab work today -seen by speech and swallow. Recommendation for dysphagia chopped diet with thin liquids -BP elevated 217/65 improved to 129/98 without medications H/o of fall; -likely due to dementia, confusion, stroke -CT negative -fall risk precautions -avoid sedatives -will obtain x ray of left knee as the patient is grimacing on palpation and it is also swollen HTN: -continue Norvasc 10 mg daily Hypothyroidism: -not on home meds -TSH 0.79 nl h/o of hypertensive cardimyopathy: -not on meds, last ECHO 08/27 with normal LV size and function DVT PPX: Heparin 5000 u sq q8H F/E/N: NS 1 bag/no changes/dysphagia chopped Dispo: stroke obs , Problem List - Problem (1) Altered mental status, unspecified Code(s): R41.82 - ALTERED MENTAL STATUS, UNSPECIFIED Qualifiers: Altered mental status type: disorientation Qualified Code(s): R41.0 - Disorientation, unspecified (2) Slurred speech Code(s): R47.81 - SLURRED SPEECH (3) Hyperlipidemia Code(s): E78.5 - HYPERLIPIDEMIA, UNSPECIFIED (4) Hypertensive cardiomyopathy Code(s): I11.9 - HYPERTENSIVE HEART DISEASE WITHOUT HEART FAILURE; I43 - CARDIOMYOPATHY IN DISEASES CLASSIFIED ELSEWHERE Qualifiers: Heart failure presence: without heart failure Qualified Code(s): I11.9 - Hypertensive heart disease without heart failure; I43 - Cardiomyopathy in diseases classified elsewhere; I43 - Cardiomyopathy in diseases classified elsewhere; I43 - Cardiomyopathy in diseases classified elsewhere; I43 - Cardiomyopathy in diseases classified elsewhere Visit type - Emergency Visit Emergency Visit: Yes ED Registration Date: 05/22/18 Care time: The patient presented to the Emergency Department on the above date and was hospitalized for further evaluation of their emergent condition. - New Patient This patient is new to me today: Yes Date on this admission: 05/22/18 - Critical Care Critical Care patient: No
--- NOTE | 2018-05-22 16:08 | ECHO ---
Name: JOSE YOST Exam:Adult Echocardiogram Study Date: 05/22/2018 03:23 PM Age: 78 yrs Reason For Study: R/O CVA/TIA/STROKE Height: 66 in Weight: 160 lb BSA: 1.8 m2 MMode/2D Measurements & Calculations IVSd: 0.97 cm Ao root diam: 2.6 cm LVIDd: 4.6 cm LA dimension: 3.4 cm LVIDs: 3.3 cm LVPWd: 0.95 cm EDV(Teich): 98.3 ml ESV(Teich): 43.7 ml Doppler Measurements & Calculations MV E max isabelle: 86.4 cm/sec MR max isabelle: 510.4 cm/sec MV A max isabelle: 77.5 cm/sec MR max P.2 mmHg MV E/A: 1.1 MV dec time: 0.15 sec TR max isabelle: 333.5 cm/sec Med Peak E' Isabelle: 3.3 cm/sec TR max P.8 mmHg Med E/e': 26.1 Lat Peak E' Isabelle: 5.8 cm/sec Lat E/e': 14.8 Left Ventricle There is mild concentric left ventricular hypertrophy. Left ventricular systolic function is normal. Ejection Fraction = 55-60%. Right Ventricle The right ventricle is grossly normal size. The right ventricular systolic function is grossly normal . Atria Normal left and right atrial size and function. The interatrial septum is not well seen. Mitral Valve The mitral valve is normal in structure and function. There is no mitral valve stenosis. There is mil d mitral regurgitation. Tricuspid Valve The tricuspid valve is normal in structure and function. There is mild tricuspid regurgitation. Right ventricular systolic pressure is elevated at 30-40mmHg. Aortic Valve There is mild aortic sclerosis.;. No hemodynamically significant valvular aortic stenosis. Pulmonic Valve The pulmonic valve is not well seen, but is grossly normal. There is no pulmonic valvular stenosis. M ild pulmonic valvular regurgitation. Great Vessels The aortic root is normal size. Pericardium/Pleura Trivial pericardial effusion not hemodynamically significant. Interpretation Summary There is mild concentric left ventricular hypertrophy. Left ventricular systolic function is normal. Ejection Fraction = 55-60%. There is mild mitral regurgitation. There is mild tricuspid regurgitation. Right ventricular systolic pressure is elevated at 30-40mmHg. There is mild aortic sclerosis.; Mild pulmonic valvular regurgitation. Trivial pericardial effusion not hemodynamically significant The interatrial septum is not well seen. MD Fortune *Vin 05/22/2018 04:08 PM
--- NOTE | 2018-05-22 18:10 | CONSULT ---
Admitting History and Physical - Smoking History Smoking history: Never smoked Have you smoked in the past 12 months: No - Alcohol/Substance Use Hx Alcohol Use: No History - Admission Reason For Visit: SLURRED SPEECH,AMS Speech Evaluation - Communication Primary Language: DANISH Communication: Yes: Simple Responses, Aphasia Oral Expression Ability: Yes: Moderate Impairment - Speech Production Apraxia: No Able to Make Needs Known: Yes: Moderately Impaired (Aphasic) Intelligibility: Yes: Moderately Impaired (reduced articulation) - Speech Characteristics Voice Loudness: Mildly Soft/Quiet Voice Pitch: Yes: Limited Variation Voice Phonatory-based Quality: Yes: Normal Speech Pattern: Normal Speech Clarity: < 50% Nasal Resonance: Normal Articulation: Yes: Imprecise Rate of Speech: Too Slow Voice Comment: Vocal quality is reduce, Airway protection is WNL - Language/Auditory Comprehension Follows: Yes: 1 Stage Simple Commands (limited. needs gestures to complete task ) Observation: Able to respond to yes/no queries: Yes (intermittant), Yes/No Confusion: Yes (ocassional), Comprehends Conversational Speech: Yes, Benefits from Slow Speech: Yes, Benefits from Repetiton: Yes, Benefits from Increased Volume of Speech: No - Language/Verbal Expression Aphasia: Yes: Paraphrasic Errors, Sound Errors Able to Respond to Simple Queries: Yes: Mildly Impaired Able to Communicate Wants and Needs: Yes: Mildly Impaired Functional Communication Status: Yes: Mildly Impaired Aware of Errors: No Attempts to Correct Errors: No Use of Gestures: Yes Written Expression: not examined Oral Expression: 1-2 word responses are adequate. short phrases and sentence are disordered. 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: Moderately Impaired Short Term Memory: Yes: Moderately Impaired - Swallow Evaluation/Bedside Assessment Current Nutritional Intake: NPO (pending swallow eval) Oral Secretions: Yes: WFL Tracheostomy Present: No Patient on Ventilator: No Dentition: Yes: Edentulous, Missing Teeth Facial Symmetry at Rest: Symmetrical Facial Symmetry on Retraction: Symmetrical Facial Movement: Controlled Sensation: Normal Facial Comment: WFL for speech and swallow purposes Jaw Position: Closed at Rest Against Resistance Opening: Normal Against Resistance Closing: Normal Pucker Lips: Normal Smile: Normal Lips, Comment: WFL for speech and swallow purposes Lingual Movement: Symmetric, Reduced Lt Lateralization, Reduced Rt Lateralization Lingual Speed of Movement: Normal Lingual Movement Strgth Against Opposition: Normal Lingual Comment: WFL for speech and swallow purposes Soft Palate Description: Normal Color Hard Palate Description: Normal Color Gag Reflex: Strong Bite Reflex: Present Velopharyngeal Movement: Normal Laryngeal Elevation: WFL Laryngeal Movement: Able to Palpate Needs Assistance: Yes Rate of Intake: WFL Bolus Size: WFL Labial Seal: WFL Chewing: Impaired Oral Prep Time: WFL A-P Transit: WFL Pocketing: None Timing of Swallow: WFL Coughing/Throat Clear: No Change in Voice: No Other Findings/Remarks: 78 yo female seen at bedside for swallow eval to r/o dysphagia with family member present for this session Pt is verbal (aphasic), A&Ox1 cooperative. MHX includes hyperlipedemia, hypothroidism. Pt admitted to [facility] for AMS, slurred speech confusion. Oral motor exam is grossly adequate with reduced tongue movement and missing teeth. Current diet is NPO Pt given po trials of puree and soft chewable solids with total assistance revealed good acceptance, adequate mastication, bolus formation and A-P transport. Pharyngeal swallow appears timely. No cough observed at this time. Thin liquid trials with total assistance were unremarkable for dysphagia and / or aspiration at this time. Recommendations - Speech Evaluation, Impression/Plan Impression: 78 yo female presents with slurred aphasic speech at bedside. Mild to moderate oral phase dysphagia secondary to dental status. Pt is able to tolerate pureed, soft solids with thin liquids without s/s of aspiration at this time. 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 at a time, Elevate HOB during feed, Other (alternate liquids for every 2-3 bites of solids.) Dysphagia Evaluation Summary: Pt is able to tolerate pureed, dysphagia chopped solids with thin liquids as tolerated. Observe standard aspiration precautions. Offer oral care as needed. Crush meds in applesauce. Results given verbally to chart RN and to pcp via chart. SENIOR CLINICAL DATA COORDINATOR to follow up for diet tolerate and possible upgrade. - Recommendations Diet Consistency: Other (Dysphagia CHOPPED) Medication Administration: Crushed with applesauce Liquids: Thin Liquids
[2018-05-22] MEDS ORDERED: ROSUVASTATIN CA 20 MG TABLET (FP) PO ONE (19:25)
[2018-05-22] MEDS ORDERED: ASPIRIN 81 MG CHEWABLE TABLETS PO ONE (19:25)
[2018-05-22] MEDS ORDERED: amLODIPine BESYLATE 10 MG TABLET (FP) PO ONE (19:53)
--- NOTE | 2018-05-22 19:53 | PN ---
Teaching Attending Note Name of Resident: Lamar Leach ATTENDING PHYSICIAN STATEMENT I saw and evaluated the patient. I reviewed the resident's note and discussed the case with the resident. I agree with the resident's findings and plan as documented. SUBJECTIVE: This is an 78 year old woman with a history of HTN, hyperlipidemia, hypothyroidism who comes to the ED because of confusion. Family noted that she fell several times yesterday and that this morning she did not recognize family and her speech was slurred. Family reports that she has had worsening confusion for several months. Family is unaware of fevers, urinary complaints, cough, weakness, chest pain, SOB. The patient is unable to provide a history. OBJECTIVE: Vital Signs Period Temp Pulse Resp BP Sys/Baptiste Pulse Ox Last 24 Hr 98.0 F-99.6 F 73-87 18-18 187-217/65-126 98-100 GENERAL: Alert, confused, agitated and uncooperative at times HEART: S1S2, RRR LUNGS: Clear ABDOMEN: Soft, non-distended, no apparent tenderness, normal BS EXTREMITIES: No edema NEUROLOGICAL: Alert, mild dysarthria, uncooperative with exam but there are no gross focal deficits Laboratory Tests 05/22/18 05/22/18 05/22/18 08:30 08:40 08:41 WBC 4.8 RBC 3.82 Hgb 11.1 Hct 33.4 D MCV 87.4 MCH 29.1 D MCHC 33.3 RDW 15.1 D Plt Count 198 MPV 9.6 D Absolute Neuts (auto) 3.6 Neutrophils % 75.2 Lymphocytes % 16.9 D Monocytes % 7.5 Eosinophils % 0.1 D Basophils % 0.3 Nucleated RBC % 0 PT with INR 12.70 INR 1.08 PTT (Actin FS) 24.2 L Sodium Potassium Chloride Carbon Dioxide Anion Gap BUN Creatinine Creat Clearance w eGFR POC Glucometer Random Glucose Calcium Total Bilirubin AST ALT Alkaline Phosphatase Troponin I Total Protein Albumin TSH Urine Color Straw Urine Appearance Clear Urine pH 7.0 Ur Specific [place] 1.013 Urine Protein Negative Urine Glucose (UA) Negative Urine Ketones Trace H Urine Blood Negative Urine Nitrite Negative Urine Bilirubin Negative Urine Urobilinogen 2.0 H Ur Leukocyte Esterase Negative Salicylates Acetaminophen Alcohol, Quantitative 05/22/18 05/22/18 08:41 09:09 WBC RBC Hgb Hct MCV MCH MCHC RDW Plt Count MPV Absolute Neuts (auto) Neutrophils % Lymphocytes % Monocytes % Eosinophils % Basophils % Nucleated RBC % PT with INR INR PTT (Actin FS) Sodium 141 Potassium 4.6 Chloride 106 Carbon Dioxide 28 Anion Gap 7 L BUN 16 Creatinine 0.7 Creat Clearance w eGFR > 60 POC Glucometer 112.47101 Random Glucose 105 Calcium 8.8 Total Bilirubin 0.5 AST 41 H ALT 28 Alkaline Phosphatase 102 Troponin I 0.02 Total Protein 7.7 Albumin 3.2 L TSH 0.79 Urine Color Urine Appearance Urine pH Ur Specific [place] Urine Protein Urine Glucose (UA) Urine Ketones Urine Blood Urine Nitrite Urine Bilirubin Urine Urobilinogen Ur Leukocyte Esterase Salicylates < 1.7 L Acetaminophen < 2.0 L Alcohol, Quantitative < 3.0 Home Medications Medication Instructions Recorded Amlodipine Besylate [Norvasc -] 10 mg PO DAILY 05/22/18 Aspirin [ASA -] 81 mg PO DAILY 05/22/18 Ferrous Sulfate [Iron] 325 mg PO DAILY 05/22/18 Rosuvastatin Calcium [Crestor] 40 mg PO DAILY 05/22/18 ASSESSMENT AND PLAN: This is an 78 year old woman with a history of HTN, hyperlipidemia, hypothyroidism who presented to the ED with confusion and slurred speech. 1. Acute metabolic encephalopathy - Monitor on telemetry - No focal neurologic deficits but patient uncooperative with exam - No evidence of infection - Head CT shows moderate volume loss and ventricular dilatation with no acute pathology - Possible hypertensive encephalopathy - Carotid dopplers - Echocardiogram - MRI of brain - Continue aspirin, Crestor - BP control - Neurology consult 2. Recent falls - PT evaluation 3. HTN - Continue Norvasc 4. Hyperlipidemia - Continue Crestor 5. Hypothyroidism - TSH normal without meds
[2018-05-22] MEDS: HEPARIN NA (PORCINE) 5,000 UNITS/ML 1ML VIAL SQ SCH (23:05)
[2018-05-23] MEDS: HEPARIN NA (PORCINE) 5,000 UNITS/ML 1ML VIAL SQ SCH ×3 (05:50→21:24)
[2018-05-23 07:58] LABS: BASO % 0.3 % (0-2.0); EOS % 0.2 % (0-4.5); HEMATOCRIT 33.6 % (32.4-45.2); HEMOGLOBIN 10.4 GM/dL (10.7-15.3); LYMPH % 25.5 % (8-40); MCH 27.2 pg (25.7-33.7); MCHC 30.9 g/dl (32.0-36.0); MEAN PLT VOLUME 9.6 fl (7.5-11.1); MONO % 8.7 % (3.8-10.2); NEUT % 65.3 % (42.8-82.8); PLATELET COUNT 180 K/MM3 (134-434); RBC 3.82 M/mm3 (3.60-5.2); RDW 14.5 % (11.6-15.6); WHITE BLOOD COUNT 4.5 K/mm3 (4.0-10.0)
[2018-05-23 09:15] LABS: ALBUMIN 2.8 g/dl (3.4-5.0); ALK PHOS 92 U/L (45-117); ANION GAP 9 MMOL/L (8-16); BILIRUBIN,TOTAL 0.9 mg/dL (0.2-1); BLOOD UREA NITROGEN 12 mg/dL (7-18); CALCIUM 8.8 mg/dL (8.5-10.1); CHLORIDE 106 mmol/L (98-107); CHOLESTEROL 164 mg/dL (50-200); CO2 25 mmol/L (21-32); CREATININE 0.7 mg/dL (0.55-1.3); GLUCOSE,RANDOM 82 mg/dL (74-106); HDL CHOLESTEROL 51 mg/dL (40-60); MAGNESIUM 2.1 mg/dL (1.8-2.4); PHOSPHOROUS 3.8 mg/dL (2.5-4.9); POTASSIUM 3.5 mmol/L (3.5-5.1); SGOT/AST 16 U/L (15-37); SGPT/ALT 20 U/L (13-61); SODIUM 140 mmol/L (136-145); TOT PROT 6.7 g/dl (6.4-8.2); TRIGLYCERIDES 56 mg/dL (0-150)
[2018-05-23] MEDS ORDERED: ASPIRIN 81 MG CHEWABLE TABLETS PO SCH (10:00)
[2018-05-23] MEDS: amLODIPine BESYLATE 10 MG TABLET (FP) PO SCH (10:00)
--- NOTE | 2018-05-23 11:05 | CONSULT ---
Consult - text type - Consultation Consultation Note: Neurology CHIEF COMPLAINT: confusion, slurred speech PCP: Dr Marinelli HISTORY OF PRESENT ILLNESS: The patient is a 78 year old female with a history of PMH of HTN, hyperlipidemia , hypothyroidism that was brought by ambulance for confusion. As per her granddaughter, day prior to admission, she fell several times at home but didn' t have any injuries and was oriented. On morning of admission, she noticed that her grandmother couldn't recognize anyone, and had slurred speech so she called ambulance. She admited that for the past few months, Ms. Garcia has been progressively more confused. The patient was not able to answer any of questions , didn't follow commands and didn't recognize her other granddaughter that was present at bedside. The patient hasn't taken any medications for the past few months. She currently lives with her granddaughter. CT head completed and without acute changes. Carotid dopplers also reviewed and without HD significant stenosis. MRI brain reviewed and with L temporal restricted diffusion. Therefore, would adjust ASA to Aggrenox BID. Already on statin and LDL is 98. PAST MEDICAL HISTORY: as above PAST SURGICAL HISTORY: hysterectomy, left toe amputation, cataract surgery Social History: Smoking:no Alcohol:no Drugs: no Family History: N/A Allergies No Known Allergies Allergy (Verified 05/22/18 07:46) HOME MEDICATIONS: Home Medications Medication Instructions Recorded Amlodipine Besylate [Norvasc -] 10 mg PO DAILY 05/22/18 Aspirin [ASA -] 81 mg PO DAILY 05/22/18 Ferrous Sulfate [Iron] 325 mg PO DAILY 05/22/18 Rosuvastatin Calcium [Crestor] 40 mg PO DAILY 05/22/18 PHYSICAL EXAMINATION Vital Signs Temperature 98.2 F 05/23/18 10:00 Pulse Rate 81 05/23/18 10:00 Respiratory Rate 18 05/23/18 10:00 Blood Pressure 189/81 H 05/23/18 10:00 O2 Sat by Pulse Oximetry (%) 96 05/23/18 09:00 GENERAL: AAOx0, in no acute distress, agitated. HEAD: Normal with no signs of trauma. EYES: Extraocular movements not able to assess, sclera anicteric, conjunctiva clear. EARS, NOSE, THROAT: Oropharynx clear without exudates. Dry mucous membranes. NECK: Normal range of motion, supple without lymphadenopathy, JVD, or masses. LUNGS: Breath sounds equal, clear to auscultation bilaterally. No wheezes, and no crackles. No accessory muscle use. HEART: Regular rate and rhythm, normal S1 and S2 without murmur, rub or gallop. ABDOMEN: Soft, nontender, not distended, normoactive bowel sounds, no guarding, no rebound, no masses. MUSCULOSKELETAL: Limited ROM in left knee, no bony deformities or tenderness. No CVA tenderness. UPPER EXTREMITIES: No peripheral edema. LOWER EXTREMITIES: 2+ pulses, warm, no calf tenderness. No peripheral edema, swollen left knee, fungus in toenails, amputated left toe, hyperpigmentation in feet bilaterally. NEUROLOGICAL: Cranial nerves not assessed, slurred speech, not following commands. PSYCHIATRIC: Cooperative. Good eye contact. Appropriate mood and affect. SKIN: Warm, dry, normal turgor, no rashes. Laboratory Results - last 24 hr 05/23/18 05/23/18 05/23/18 06:30 06:30 06:30 WBC 4.5 RBC 3.82 Hgb 10.4 L Hct 33.6 MCV 88.0 MCH 27.2 MCHC 30.9 L RDW 14.5 Plt Count 180 MPV 9.6 Absolute Neuts (auto) 2.9 Neutrophils % 65.3 Lymphocytes % 25.5 D Monocytes % 8.7 Eosinophils % 0.2 D Basophils % 0.3 Nucleated RBC % 0 Sodium 140 Potassium 3.5 Chloride 106 Carbon Dioxide 25 Anion Gap 9 BUN 12 Creatinine 0.7 Creat Clearance w eGFR > 60 Random Glucose 82 Hemoglobin A1c % 5.7 Calcium 8.8 Phosphorus 3.8 Magnesium 2.1 Total Bilirubin 0.9 AST 16 ALT 20 Alkaline Phosphatase 92 Total Protein 6.7 Albumin 2.8 L Triglycerides 56 Cholesterol 164 Total LDL Cholesterol 98 HDL Cholesterol 51 DIAGNOSTICS CXRAY - completed and reviewed Head CT - completed and reviewed Cervical Spine CT - completed and reviewed Brain MRI - completed and reviewed Carotid Doppler - completed and reviewed Knee Xray - completed and reviewed ASSESSMENT/PLAN: The patient is a 78 year old female with a history of PMH of HTN, hyperlipidemia , hypothyroidism that was brought by ambulance for confusion. As per her granddaughter, day prior to admission, she fell several times at home but didn' t have any injuries and was oriented. On morning of admission, she noticed that her grandmother couldn't recognize anyone, and had slurred speech so she called ambulance. She admits that for the past few months, Ms. Garcia has been progressively more confused. CT head completed and without acute changes. Carotid dopplers also reviewed and without HD significant stenosis. MRI brain reviewed and with L temporal restricted diffusion. Therefore, would adjust ASA to Aggrenox BID. Already on statin and LDL is 98. Continue telemetry monitoring. Speech/swallow evaluation. Monitor blood pressure, recommend < 160/ 90 for now, < 140/90 tomorrow AM. Follow up echo. DVT ppx.
[2018-05-23] MEDS ORDERED: LISINOPRIL 5 MG TABLET (FP) PO ONE (12:00)
--- NOTE | 2018-05-23 15:25 | PN ---
Progress Note (short form) - Note Progress Note: she is comfortable and she is eating herself no fever or nausea or vomiting she is alert and awake seen my neuro and MRI of brain done vs Vital Signs Period Temp Pulse Resp BP Sys/Baptiste Pulse Ox Last 24 Hr 98.2 F-99.6 F 72-89 18-20 140-211/51-126 96-98 CBC, BMP 05/23/18 06:30 05/23/18 06:30 Heent nad neck supple lungs clear heart s1 s 2 normal ext no edema neuro grossly normal and has no focal deficit neuro tets Carotid dopplers also reviewed and without HD significant stenosis. MRI brain reviewed and with L temporal restricted diffusion. ASSESSMENT AND PLAN: This is an 78 year old woman with a history of HTN, hyperlipidemia, hypothyroidism who presented to the ED with confusion and slurred speech. 1. Acute metabolic encephalopathy - no arrythmia on telemetry - Continue aspirin, Crestor - BP control - Neurology consult done today 2. Recent falls - PT evaluation 3. HTN - Continue Norvasc has to add lisinopril bc bp was high this morning and now it is getting better 4. Hyperlipidemia - Continue Crestor 5. Hypothyroidism h/o - TSH normal without meds 6. Anemia new onset it is small drop in hemoglobin probably due to hydration and no sign of bleeding will f/u
[2018-05-23] MEDS: ASPIRIN/DIPYRIDAMOLE 25 MG/200 MG CAPSULE (FP) PO SCH (21:24)
[2018-05-23] MEDS: ROSUVASTATIN CA 20 MG TABLET (FP) PO SCH (21:24)
[2018-05-24] MEDS: HEPARIN NA (PORCINE) 5,000 UNITS/ML 1ML VIAL SQ SCH ×3 (06:16→22:26)
[2018-05-24] MEDS: ASPIRIN/DIPYRIDAMOLE 25 MG/200 MG CAPSULE (FP) PO SCH ×2 (10:22→22:26)
[2018-05-24] MEDS: amLODIPine BESYLATE 10 MG TABLET (FP) PO SCH (10:22)
--- NOTE | 2018-05-24 11:25 | PN ---
Progress Note (short form) - Note Progress Note: Neurology HISTORY OF PRESENT ILLNESS: The patient is a 78 year old female with a history of PMH of HTN, hyperlipidemia , hypothyroidism that was brought by ambulance for confusion. As per her granddaughter, day prior to admission, she fell several times at home but didn' t have any injuries and was oriented. On morning of admission, she noticed that her grandmother couldn't recognize anyone, and had slurred speech so she called ambulance. She admitted that for the past few months, Ms. Garcia has been progressively more confused. The patient was not able to answer any of questions , didn't follow commands and didn't recognize her other granddaughter that was present at bedside during initial ER visit. The patient hasn't taken any medications for the past few months. She currently lives with her granddaughter. CT head completed and without acute changes. Carotid dopplers also reviewed and without HD significant stenosis. MRI brain reviewed and with L temporal restricted diffusion. Therefore, would adjust ASA to Aggrenox BID. Already on statin and LDL is 98. Discussed with family yesterday and made aware of results. Patient denies any new events or deficits overnight. Active Medications Amlodipine Besylate (Norvasc -) 10 mg PO DAILY [facility] Last Admin: 05/24/18 10:22 Dose: 10 mg Dipyridamole/Aspirin (Aggrenox -) 1 combo PO BID [facility] Last Admin: 05/24/18 10:22 Dose: 1 combo Heparin Sodium (Porcine) (Heparin -) 5,000 unit SQ TID [facility] Last Admin: 05/24/18 06:16 Dose: 5,000 unit Lisinopril (Prinivil) 5 mg PO DAILY [facility] Rosuvastatin Calcium (Crestor -) 40 mg PO HS [facility] Last Admin: 05/23/18 21:24 Dose: 40 mg PHYSICAL EXAMINATION Vital Signs Temperature 98.0 F 05/24/18 06:00 Pulse Rate 77 05/24/18 06:00 Respiratory Rate 18 05/24/18 09:00 Blood Pressure 164/72 05/24/18 06:00 O2 Sat by Pulse Oximetry (%) 96 05/24/18 09:00 GENERAL: AAOx0, in no acute distress, agitated. HEAD: Normal with no signs of trauma. EYES: Extraocular movements not able to assess, sclera anicteric, conjunctiva clear. EARS, NOSE, THROAT: Oropharynx clear without exudates. Dry mucous membranes. NECK: Normal range of motion, supple without lymphadenopathy, JVD, or masses. LUNGS: Breath sounds equal, clear to auscultation bilaterally. No wheezes, and no crackles. No accessory muscle use. HEART: Regular rate and rhythm, normal S1 and S2 without murmur, rub or gallop. ABDOMEN: Soft, nontender, not distended, normoactive bowel sounds, no guarding, no rebound, no masses. MUSCULOSKELETAL: Limited ROM in left knee, no bony deformities or tenderness. No CVA tenderness. UPPER EXTREMITIES: No peripheral edema. LOWER EXTREMITIES: 2+ pulses, warm, no calf tenderness. No peripheral edema, swollen left knee, fungus in toenails, amputated left toe, hyperpigmentation in feet bilaterally. NEUROLOGICAL: Cranial nerves not assessed, slurred speech, not following commands. PSYCHIATRIC: Cooperative. Good eye contact. Appropriate mood and affect. SKIN: Warm, dry, normal turgor, no rashes. CBCD WBC 4.5 K/mm3 (4.0-10.0) 05/23/18 06:30 RBC 3.82 M/mm3 (3.60-5.2) 05/23/18 06:30 Hgb 10.4 GM/dL (10.7-15.3) L 05/23/18 06:30 Hct 33.6 % (32.4-45.2) 05/23/18 06:30 MCV 88.0 fl (80-96) 05/23/18 06:30 MCHC 30.9 g/dl (32.0-36.0) L 05/23/18 06:30 RDW 14.5 % (11.6-15.6) 05/23/18 06:30 Plt Count 180 K/MM3 (134-434) 05/23/18 06:30 MPV 9.6 fl (7.5-11.1) 05/23/18 06:30 CMP Sodium 140 mmol/L (136-145) 05/23/18 06:30 Potassium 3.5 mmol/L (3.5-5.1) 05/23/18 06:30 Chloride 106 mmol/L (98-107) 05/23/18 06:30 Carbon Dioxide 25 mmol/L (21-32) 05/23/18 06:30 Anion Gap 9 MMOL/L (8-16) 05/23/18 06:30 BUN 12 mg/dL (7-18) 05/23/18 06:30 Creatinine 0.7 mg/dL (0.55-1.3) 05/23/18 06:30 Creat Clearance w eGFR > 60 (>60) 05/23/18 06:30 Random Glucose 82 mg/dL (74-106) 05/23/18 06:30 Calcium 8.8 mg/dL (8.5-10.1) 05/23/18 06:30 Total Bilirubin 0.9 mg/dL (0.2-1) 05/23/18 06:30 AST 16 U/L (15-37) 05/23/18 06:30 ALT 20 U/L (13-61) 05/23/18 06:30 Alkaline Phosphatase 92 U/L (45-117) 05/23/18 06:30 Total Protein 6.7 g/dl (6.4-8.2) 05/23/18 06:30 Albumin 2.8 g/dl (3.4-5.0) L 05/23/18 06:30 CARDIAC ENZYMES Troponin I 0.02 ng/ml (0.00-0.05) 05/22/18 08:41 DIAGNOSTICS CXRAY - completed and reviewed Head CT - completed and reviewed Cervical Spine CT - completed and reviewed Brain MRI - completed and reviewed Carotid Doppler - completed and reviewed Knee Xray - completed and reviewed ASSESSMENT/PLAN: The patient is a 78 year old female with a history of PMH of HTN, hyperlipidemia , hypothyroidism that was brought by ambulance for confusion. As per her granddaughter, day prior to admission, she fell several times at home but didn' t have any injuries and was oriented. On morning of admission, she noticed that her grandmother couldn't recognize anyone, and had slurred speech so she called ambulance. She admits that for the past few months, Ms. Garcia has been progressively more confused. CT head completed and without acute changes. Carotid dopplers also reviewed and without HD significant stenosis. MRI brain reviewed and with L temporal restricted diffusion. Therefore, would adjust ASA to Aggrenox BID. Already on statin and LDL is 98. Continue telemetry monitoring. Speech/swallow evaluation. Monitor blood pressure, recommend < 140/ 90 for now, <130/80 as outpatient. DVT ppx. Continue to monitor neurologic function, remains stable at this time
--- NOTE | 2018-05-24 11:34 | PN ---
Teaching Attending Note Name of Resident: Ariana Conrad ATTENDING PHYSICIAN STATEMENT I saw and evaluated the patient. I reviewed the resident's note and discussed the case with the resident. I agree with the resident's findings and plan as documented. 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 and unchanged neruro Current Medications Amlodipine Besylate (Norvasc -) 10 mg PO DAILY [facility] Last Admin: 05/24/18 10:22 Dose: 10 mg Dipyridamole/Aspirin (Aggrenox -) 1 combo PO BID [facility] Last Admin: 05/24/18 10:22 Dose: 1 combo Heparin Sodium (Porcine) (Heparin -) 5,000 unit SQ TID [facility] Last Admin: 05/24/18 06:16 Dose: 5,000 unit Rosuvastatin Calcium (Crestor -) 40 mg PO HS [facility] Last Admin: 05/23/18 21:24 Dose: 40 mg ASSESSMENT AND PLAN: ASSESSMENT AND PLAN: This is an 78 year old woman with a history of HTN, hyperlipidemia, hypothyroidism who presented to the ED with confusion and slurred speech. At this time she is better on aggrinox Bp is still on higher side and will add 5 mg of lisinopril order pt and possible discharge am to home or rehab after rehab eval
--- NOTE | 2018-05-24 12:39 | PN ---
Physical Exam: SUBJECTIVE: Patient seen and examined at bedside this morning. She denies subjective fevers, chills, cough, shortness of breath, chest pain, palpitations , abdominal pain, nausea, vomiting. OBJECTIVE: Vital Signs Period Temp Pulse Resp BP Sys/Baptiste Pulse Ox Last 24 Hr 97.7 F-99.0 F 73-79 18-20 140-164/51-72 96-96 GENERAL: The patient is awake, alert, oriented to person, and place. Patient is in no acute distress. HEAD: Normal with no signs of trauma. EYES: PERRL, extraocular movements intact, sclera anicteric, conjunctiva clear ENT: Oropharynx clear without exudates, moist mucous membranes. NECK: Supple without lymphadenopathy LUNGS: Breath sounds equal, clear to auscultation bilaterally. No wheezes, no crackles. No accessory muscle use. HEART: Regular rate and rhythm, S1, S2 without murmur, rub or gallop. ABDOMEN: Soft, nontender, nondistended, normoactive bowel sounds, no guarding, no rebound, no hepatosplenomegaly, no masses. EXTREMITIES: 2+ radial and dorsalis pedis pulses B/L. Warm, well-perfused, no edema. Left lower extremity tender to palpation. NEUROLOGICAL: Cranial nerves II through XII grossly intact. Normal speech. No gross focal neurologic deficits. PSYCH: Normal mood, normal affect upon my encounter today. SKIN: Warm, dry. Hyperpigmentation B/L lower extremities noted. Active Medications Generic Name Dose Route Start Last Admin Trade Name Freq PRN Reason Stop Dose Admin Amlodipine Besylate 10 mg 05/23/18 10:00 05/24/18 10:22 Norvasc - PO 10 mg DAILY [facility] Administration Dipyridamole/Aspirin 1 combo 05/23/18 22:00 05/24/18 10:22 Aggrenox - PO 1 combo BID [facility] Administration Heparin Sodium (Porcine) 5,000 unit 05/22/18 22:00 05/24/18 06:16 Heparin - SQ 5,000 unit TID [facility] Administration Lisinopril 5 mg 05/25/18 10:00 Prinivil PO DAILY [facility] Rosuvastatin Calcium 40 mg 05/23/18 22:00 05/23/18 21:24 Crestor - PO 40 mg HS [facility] Administration ASSESSMENT/PLAN: Patient is an 78 year old female with history of hypertension, lyperlipidemia, hypothyroidism, presenting with confusion, and slurred speech. Acute metabolic encephalopathy -Unclear etiology. MRI findings concerning for recent ischemic event. -CT head shows moderate volume loss with ventricular dilation, chronic microvascular ischemic changes. No acute infract of itnracranial hemorrhage noted. -MRI brain shows slightly restricted cortical diffusion within left posterior temporal. parietal lobe. Microvascular ischemic gliosis within periventricular and subcortical white matter, basal ganglia, thalami bilaterally. -Carotid doppler shows no high grade carotid artery stenosis -Aggrenox PO BID -Rosuvastatin 40mg PO HS -Neurology consult (Dr. Castro) appreciated. Recurrent falls -Mechanical vs. secondary to dementia or CVA -CT head negative for acute intracranial hemorrhage -CT cervical spine shows no gross fracture or subluxation. -Xray knee shows extensive osteoarthritic changes, without acute fracture. -Venous doppler B/L lower extremities negative for DVT -Physical therapy evaluation -Fall risk precautions Hypertension -Norvasc 10mg PO daily -Begin Lisinopril 5mg PO daily Hyperlipidemia -Rosuvastatin 40mg PO HS Hypothyroidism -Currently not on medication. 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 FEN -No IV fluids indicated. Encourage judicious oral hydration -Follow CMP -Dysphagia chopped diet Prophylaxis -Heparin 5000u subq TID Disposition -Continue care in medical- surgical floor. Visit type - Emergency Visit Emergency Visit: Yes ED Registration Date: 05/22/18 Care time: The patient presented to the Emergency Department on the above date and was hospitalized for further evaluation of their emergent condition. - New Patient This patient is new to me today: Yes Date on this admission: 05/24/18 - Critical Care Critical Care patient: No - Discharge Referral Referred to [facility] Med P.C.: No
[2018-05-24] MEDS ORDERED: LISINOPRIL 5 MG TABLET (FP) PO ONE (13:00)
[2018-05-24] MEDS ORDERED: ACETAMINOPHEN 325 MG TABLET (FP) PO ONE (15:48)
[2018-05-24] MEDS ORDERED: PT OWN MED DRAWER 7, Y5N ONE (22:19)
[2018-05-24] MEDS: ROSUVASTATIN CA 20 MG TABLET (FP) PO SCH (22:26)
[2018-05-25] MEDS: HEPARIN NA (PORCINE) 5,000 UNITS/ML 1ML VIAL SQ SCH ×2 (05:51→13:22)
[2018-05-25 06:34] LABS: HEMATOCRIT 33.2 % (32.4-45.2); HEMOGLOBIN 10.3 GM/dL (10.7-15.3); MCH 27.2 pg (25.7-33.7); MEAN CELL VOLUME 87.8 fl (80-96); MEAN PLT VOLUME 9.6 fl (7.5-11.1); PLATELET COUNT 178 K/MM3 (134-434); RBC 3.78 M/mm3 (3.60-5.2); RDW 14.8 % (11.6-15.6); WHITE BLOOD COUNT 4.5 K/mm3 (4.0-10.0)
[2018-05-25 06:52] LABS: ALBUMIN 2.4 g/dl (3.4-5.0); ALK PHOS 83 U/L (45-117); ANION GAP 5 MMOL/L (8-16); BILIRUBIN,TOTAL 0.7 mg/dL (0.2-1); BLOOD UREA NITROGEN 14 mg/dL (7-18); CALCIUM 8.5 mg/dL (8.5-10.1); CHLORIDE 109 mmol/L (98-107); CO2 28 mmol/L (21-32); CREATININE 0.7 mg/dL (0.55-1.3); GLUCOSE,RANDOM 98 mg/dL (74-106); MAGNESIUM 2.3 mg/dL (1.8-2.4); PHOSPHOROUS 3.2 mg/dL (2.5-4.9); POTASSIUM 3.7 mmol/L (3.5-5.1); SGOT/AST 13 U/L (15-37); SGPT/ALT 17 U/L (13-61); SODIUM 142 mmol/L (136-145); TOT PROT 6.1 g/dl (6.4-8.2)
--- NOTE | 2018-05-25 09:23 | PN ---
Progress Note (short form) - Note Progress Note: Neurology HISTORY OF PRESENT ILLNESS: The patient is a 78 year old female with a history of PMH of HTN, hyperlipidemia , hypothyroidism that was brought by ambulance for confusion. As per her granddaughter, day prior to admission, she fell several times at home but didn' t have any injuries and was oriented. On morning of admission, she noticed that her grandmother couldn't recognize anyone, and had slurred speech so she called ambulance. She admitted that for the past few months, Ms. Garcia has been progressively more confused. The patient was not able to answer any of questions , didn't follow commands and didn't recognize her other granddaughter that was present at bedside during initial ER visit. The patient hasn't taken any medications for the past few months. She currently lives with her granddaughter. CT head completed and without acute changes. Carotid dopplers also reviewed and without HD significant stenosis. MRI brain reviewed and with L temporal restricted diffusion. Therefore, adjusted ASA to Aggrenox BID. Already on statin and LDL is 98. Patient denies any new events or deficits overnight. Neurologically stable at this time. Active Medications Amlodipine Besylate (Norvasc -) 10 mg PO DAILY [facility] Last Admin: 05/24/18 10:22 Dose: 10 mg Dipyridamole/Aspirin (Aggrenox -) 1 combo PO BID [facility] Last Admin: 05/24/18 22:26 Dose: 1 combo Heparin Sodium (Porcine) (Heparin -) 5,000 unit SQ TID [facility] Last Admin: 05/25/18 05:51 Dose: 5,000 unit Lisinopril (Prinivil) 5 mg PO DAILY [facility] Rosuvastatin Calcium (Crestor -) 40 mg PO HS [facility] Last Admin: 05/24/18 22:26 Dose: 40 mg PHYSICAL EXAMINATION Vital Signs Period Temp Pulse Resp BP Sys/Baptiste Pulse Ox Last 24 Hr 98.2 F-98.8 F 64-68 18-18 144-164/58-86 96 GENERAL: AAOx0, in no acute distress, agitated. HEAD: Normal with no signs of trauma. EYES: Extraocular movements not able to assess, sclera anicteric, conjunctiva clear. EARS, NOSE, THROAT: Oropharynx clear without exudates. Dry mucous membranes. NECK: Normal range of motion, supple without lymphadenopathy, JVD, or masses. LUNGS: Breath sounds equal, clear to auscultation bilaterally. No wheezes, and no crackles. No accessory muscle use. HEART: Regular rate and rhythm, normal S1 and S2 without murmur, rub or gallop. ABDOMEN: Soft, nontender, not distended, normoactive bowel sounds, no guarding, no rebound, no masses. MUSCULOSKELETAL: Limited ROM in left knee, no bony deformities or tenderness. No CVA tenderness. UPPER EXTREMITIES: No peripheral edema. LOWER EXTREMITIES: 2+ pulses, warm, no calf tenderness. No peripheral edema, swollen left knee, fungus in toenails, amputated left toe, hyperpigmentation in feet bilaterally. NEUROLOGICAL: Cranial nerves not assessed, slurred speech, not following commands. PSYCHIATRIC: Cooperative. Good eye contact. Appropriate mood and affect. SKIN: Warm, dry, normal turgor, no rashes. CBCD WBC 4.5 K/mm3 (4.0-10.0) 05/25/18 05:00 RBC 3.78 M/mm3 (3.60-5.2) 05/25/18 05:00 Hgb 10.3 GM/dL (10.7-15.3) L 05/25/18 05:00 Hct 33.2 % (32.4-45.2) 05/25/18 05:00 MCV 87.8 fl (80-96) 05/25/18 05:00 MCHC 31.0 g/dl (32.0-36.0) L 05/25/18 05:00 RDW 14.8 % (11.6-15.6) 05/25/18 05:00 Plt Count 178 K/MM3 (134-434) 05/25/18 05:00 MPV 9.6 fl (7.5-11.1) 05/25/18 05:00 CMP Sodium 142 mmol/L (136-145) 05/25/18 05:00 Potassium 3.7 mmol/L (3.5-5.1) 05/25/18 05:00 Chloride 109 mmol/L (98-107) H 05/25/18 05:00 Carbon Dioxide 28 mmol/L (21-32) 05/25/18 05:00 Anion Gap 5 MMOL/L (8-16) L 05/25/18 05:00 BUN 14 mg/dL (7-18) 05/25/18 05:00 Creatinine 0.7 mg/dL (0.55-1.3) 05/25/18 05:00 Creat Clearance w eGFR > 60 (>60) 05/25/18 05:00 Random Glucose 98 mg/dL (74-106) 05/25/18 05:00 Calcium 8.5 mg/dL (8.5-10.1) 05/25/18 05:00 Total Bilirubin 0.7 mg/dL (0.2-1) 05/25/18 05:00 AST 13 U/L (15-37) L 05/25/18 05:00 ALT 17 U/L (13-61) 05/25/18 05:00 Alkaline Phosphatase 83 U/L (45-117) 05/25/18 05:00 Total Protein 6.1 g/dl (6.4-8.2) L 05/25/18 05:00 Albumin 2.4 g/dl (3.4-5.0) L 05/25/18 05:00 CARDIAC ENZYMES Troponin I 0.02 ng/ml (0.00-0.05) 05/22/18 08:41 DIAGNOSTICS CXRAY - completed and reviewed Head CT - completed and reviewed Cervical Spine CT - completed and reviewed Brain MRI - completed and reviewed Carotid Doppler - completed and reviewed Knee Xray - completed and reviewed ASSESSMENT/PLAN: The patient is a 78 year old female with a history of PMH of HTN, hyperlipidemia , hypothyroidism that was brought by ambulance for confusion. As per her granddaughter, day prior to admission, she fell several times at home but didn' t have any injuries and was oriented. On morning of admission, she noticed that her grandmother couldn't recognize anyone, and had slurred speech so she called ambulance. She admits that for the past few months, Ms. Garcia has been progressively more confused. CT head completed and without acute changes. Carotid dopplers also reviewed and without HD significant stenosis. MRI brain reviewed and with L temporal restricted diffusion. Therefore, would adjust ASA to Aggrenox BID. Already on statin and LDL is 98. Continue telemetry monitoring. Monitor blood pressure, recommend < 140/90 for now, <130/80 as outpatient. DVT ppx. Neurologically stable at this time.
[2018-05-25] MEDS ORDERED: LISINOPRIL 5 MG TABLET (FP) PO SCH (10:00)
[2018-05-25 10:04] VITALS: TEMP 98.1
[2018-05-25] MEDS: ASPIRIN/DIPYRIDAMOLE 25 MG/200 MG CAPSULE (FP) PO SCH (10:06)
[2018-05-25] MEDS: amLODIPine BESYLATE 10 MG TABLET (FP) PO SCH (10:06)
--- NOTE | 2018-05-25 12:08 | PN ---
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 She said she walked into a wall and hit her head,unable to speak intelligibly, facilitating the admission. Today she is oriented x 3, although she says 1920 which i believe is a paraphasic error. 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 Able to masticate. 3 oz water test neg. MRI brain reviewed and with L temporal restricted diffusion Improving confusion/verbal expression. REC: Reg diet/thin liquid
[2018-05-25 13:48] VITALS: BP 119/43; PULSE 71
--- NOTE | 2018-05-25 14:01 | PN ---
Teaching Attending Note Name of Resident: Ladarius Arriaga ATTENDING PHYSICIAN STATEMENT I saw and evaluated the patient. I reviewed the resident's note and discussed the case with the resident. I agree with the resident's findings and plan as documented. SUBJECTIVE: Feeling well - no complaints. No headache/visual disturbance/limb numbness/weakness. OBJECTIVE: Afebrile, Hemodynamically Stable. Last Vital Signs Temp Pulse Resp BP Pulse Ox 98.1 F 71 18 119/43 L 98 05/25/18 10:03 05/25/18 13:47 05/25/18 13:47 05/25/18 13:47 05/25/18 09:00 HEENT - Atraumatic, Normocephalic Heart - S1, S2, RRR Lungs -clear to auscultation. Abdomen - Soft, non-tender. Bowel Sounds normal. Extremities - no calf tenderness Neuro -AAO x 3. Tone/power normal all extremities. CN II-XII intact. Laboratory Results - last 24 hr 05/25/18 05/25/18 05:00 05:00 WBC 4.5 RBC 3.78 Hgb 10.3 L Hct 33.2 MCV 87.8 MCH 27.2 MCHC 31.0 L RDW 14.8 Plt Count 178 MPV 9.6 Sodium 142 Potassium 3.7 Chloride 109 H Carbon Dioxide 28 Anion Gap 5 L BUN 14 Creatinine 0.7 Creat Clearance w eGFR > 60 Random Glucose 98 Calcium 8.5 Phosphorus 3.2 Magnesium 2.3 Total Bilirubin 0.7 AST 13 L ALT 17 Alkaline Phosphatase 83 Total Protein 6.1 L Albumin 2.4 L Current Medications Generic Name Dose Route Start Last Admin Trade Name Roel PRN Reason Stop Dose Admin Amlodipine Besylate 10 mg 05/23/18 10:00 05/25/18 10:06 Norvasc - PO 10 mg DAILY [facility] Administration Dipyridamole/Aspirin 1 combo 05/23/18 22:00 05/25/18 10:06 Aggrenox - PO 1 combo BID [facility] Administration Heparin Sodium (Porcine) 5,000 unit 05/22/18 22:00 05/25/18 13:22 Heparin - SQ 5,000 unit TID [facility] Administration Lisinopril 5 mg 05/25/18 10:00 05/25/18 10:07 Prinivil PO 5 mg DAILY [facility] Administration Rosuvastatin Calcium 40 mg 05/23/18 22:00 05/24/18 22:26 Crestor - PO 40 mg HS [facility] Administration ASSESSMENT AND PLAN: 78 year old female with a history of HTN, hyperlipidemia, hypothyroidism who presented to the ED with confusion and slurred speech. 1. Acute metabolic encephalopathy, possible TIA - resolved. No focal Neuro deficits. AAO x 3. Head CT shows moderate volume loss and ventricular dilatation with no acute pathology Echo - normal. Carotid Duplex - no hemodynamically significant stenosis. MRI Brain - L temporal restricted diffusion Evaluated by Neuro - ASA switched to Aggrenox. Continue Crestor. 2. Ambulatory Dysfunction with Recent falls - PT evaluation - may need placement. 3. HTN - Continue Norvasc and Lisinopril. Neuro recommends following BP guidelines: <130/80 as outpatient 4. Hyperlipidemia - Continue Crestor 5. Hypothyroidism - TSH normal without meds Neurologically Stable and medically optimized for discharge to Rehab/SNF due to ambulatory dysfunction. Family currently declining SNF.
--- NOTE | 2018-05-25 16:16 | DS ---
Physical Exam: SUBJECTIVE: Patient seen and examined at bedside this morning. She denies subjective fevers, chills, cough, shortness of breath, chest pain, palpitations , abdominal pain, nausea, vomiting. OBJECTIVE: Vital Signs Period Temp Pulse Resp BP Sys/Baptiste Pulse Ox Last 24 Hr 98.1 F-98.8 F 64-71 18-18 119-160/43-69 96-98 PHYSICAL EXAM GENERAL: The patient is awake, alert, oriented to person, and place. Patient is in no acute distress. HEAD: Normal with no signs of trauma. EYES: PERRL, extraocular movements intact, sclera anicteric, conjunctiva clear ENT: Oropharynx clear without exudates, moist mucous membranes. NECK: Supple without lymphadenopathy LUNGS: Breath sounds equal, clear to auscultation bilaterally. No wheezes, no crackles. No accessory muscle use. HEART: Regular rate and rhythm, S1, S2 without murmur, rub or gallop. ABDOMEN: Soft, nontender, nondistended, normoactive bowel sounds, no guarding, no rebound, no hepatosplenomegaly, no masses. EXTREMITIES: 2+ radial and dorsalis pedis pulses B/L. Warm, well-perfused, no edema. NEUROLOGICAL: Cranial nerves II through XII grossly intact. Normal speech. No gross focal neurologic deficits. PSYCH: Normal mood, normal affect upon my encounter today. SKIN: Warm, dry. LABS Laboratory Results - last 24 hr 05/25/18 05/25/18 05:00 05:00 WBC 4.5 RBC 3.78 Hgb 10.3 L Hct 33.2 MCV 87.8 MCH 27.2 MCHC 31.0 L RDW 14.8 Plt Count 178 MPV 9.6 Sodium 142 Potassium 3.7 Chloride 109 H Carbon Dioxide 28 Anion Gap 5 L BUN 14 Creatinine 0.7 Creat Clearance w eGFR > 60 Random Glucose 98 Calcium 8.5 Phosphorus 3.2 Magnesium 2.3 Total Bilirubin 0.7 AST 13 L ALT 17 Alkaline Phosphatase 83 Total Protein 6.1 L Albumin 2.4 L HOSPITAL COURSE: Date of Admission:05/22/18 Date of Discharge: 05/25/18 Patient is an 78 year old female with history of hypertension, hyperlipidemia, hypothyroidism, presenting with confusion, and slurred speech after a fall. CT head showed moderate volume loss with ventricular dilation, chronic microvascular ischemic changes. No acute infract of itnracranial hemorrhage noted. CT cervical spine showed no gross fracture or subluxation. MRI brain showed slightly restricted cortical diffusion within left posterior temporal, parietal lobe. Microvascular ischemic gliosis within periventricular and subcortical white matter, basal ganglia, thalami bilaterally. Carotid doppler showed no high grade carotid artery stenosis. Neurology consut discussed beginning Aggrenox, and continuing home dose Rosuvastatin. Patient also complained of left knee pain however X-ray knee showed extensive osteoarthritic changes, without acute fracture. Venous doppler B/L lower extremities negative for DVT. Home Norvasc was continued for hypertension, and Lisinopril was added for better BP control. Patient discharged to SNF with follow up to primary care physician, and neurologist. Minutes to complete discharge: 37 Discharge Summary Reason For Visit: SLURRED SPEECH,AMS Current Active Problems Altered mental status, unspecified (Acute) Slurred speech (Acute) Condition: Stable - Instructions Diet, Activity, Other Instructions: You were admitted to the hospital for confusion, and slurred speech after a fall You were evaluated by the neurologist, and are neurologically stable, for discharge. You are being discharged home. We have made some changes to your medications: You will STOP taking aspirin. Instead, we have added Aggrenox to your medication regimen. Take one tablet every 12 hours. We have added Lisinopril 5mg daily to your medication regimen for your blood pressure. Measure your blood pressure daily, adn record your readings. Bring with you to your primary care physician appointment. Continue taking Rosuvastatin, Amlodipine, and Iron supplements. A prescription for a rolling walker has also been provided. It is important that you follow up with your primary care physician within two to three days as an outpatient It is important that you follow up with Neurologist Dr. Castro within one week after discharge. Return to the nearest Emergency Department if you experience any fevers, chills , shortness of breath, chest pain, palpitations, abdominal pain, nausea, vomiting. Referrals: Rubin Castro MD [Staff Physician] - Disposition: NURSING HOME FACILITY - Home Medications Comprehensive Discharge Medication List: Ambulatory Orders Amlodipine Besylate [Norvasc -] 10 mg PO DAILY 05/22/18 Ferrous Sulfate [Iron] 325 mg PO DAILY 05/22/18 Rosuvastatin Calcium [Crestor] 40 mg PO DAILY 05/22/18 Aspirin/Dipyridamole [Aggrenox -] 1 combo PO BID 30 Days #60 capsule 05/25/18 Lisinopril 5 mg PO DAILY 30 Days #30 tablet 05/25/18 Miscellaneous Medical Supply [Outpatient Order] 1 each ASDIR #1 misc Walker [Ultra-Light Rollator] 1 each ASDIR #1 each 05/25/18 This patient is new to me today: No Emergency Visit: Yes ED Registration Date: 05/22/18 Care time: The patient presented to the Emergency Department on the above date and was hospitalized for further evaluation of their emergent condition. Critical Care patient: No - Discharge Referral Referred to [facility] No
== END 2018-05-25 18:49 | DRG 69 ==
LOC: JER 07:39 → JERBED 12:48 → J4S 16:07 → OBSVTOIN 16:50
PROVIDERS: ADMIT Internal Medicine
DX: G45.9 Transient cerebral ischemic attack, unspecified (principal); G93.41 Metabolic encephalopathy; I67.4 Hypertensive encephalopathy; R41.82 Altered mental status, unspecified; R47.81 Slurred speech; E78.5 Hyperlipidemia, unspecified; I11.9 Hypertensive heart disease without heart failure; E03.9 Hypothyroidism, unspecified
CPT/HCPCS: 36415; 70450-TC; 70551-TC; 71045-TC-FY; 72125-TC; 73560-TC-LT-FY; 80053; 80061; 80307; 81003; 82962; 83036; 83721; 83735; 84100; 84443; 84484; 85025; 85027; 85610; 85730; 87086; 93005; 93010; 93306-TC; 93880-TC; 93970-TC; 97116-GP; 97161-GP; 99285-25; G0378; J1644; J7030